=== PATIENT | male | born 1965 | race Hispanic/Latino ===

== ENCOUNTER 2018-11-05 06:07 | Emergency (ER) | payer MEDICARE ==
[2018-11-05] MEDS ORDERED: TYLENOL PO ONE (07:26)
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
--- NOTE | 2018-11-05 07:57 | XRay Report ---
PROCEDURE: XR SPINE CERVICAL 4-5V TECHNIQUE: Cervical spine complete, including AP, lateral, open-mouth odontoid, oblique and flexion and extension studies. HISTORY: neck pain COMPARISONS: 06/12/2018 . FINDINGS: There is hardware transfixing C5, C6 and C7. The hardware is intact. There is mild degenerative disc space narrowing at C4-C5 and C5-C6. There are no fractures or malalignments. There is right-sided foraminal narrowing at C3-C4 and C4-C5 due to osteophytic ridging. There is a le ft foraminal narrowing at C3-C4 4 due to osteophytic ridging. Soft tissues are unremarkable. IMPRESSION: There are postsurgical and degenerative changes as described. There is no acute abnormal ity. . This document is electronically signed by Jaron Villatoro MD., November 05 2018 07:54:32 AM ET
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
[2018-11-05 09:52] VITALS: BP 133/83
== END 2018-11-05 09:55 | disposition home or self-care (01) ==
LOC: ED 06:07
DX: S10.91XA Abrasion of unspecified part of neck, initial encounter (principal); M54.2 Cervicalgia; F17.200 Nicotine dependence, unspecified, uncomplicated; Y04.8XXA Assault by other bodily force, initial encounter; Y93.89 Activity, other specified; Y92.89 Other specified places as the place of occurrence of the external cause; Y99.8 Other external cause status
CPT/HCPCS: 70450; 72050; 99284

== ENCOUNTER 2018-12-03 05:17 | Emergency (ER) | payer MEDICARE ==
[2018-12-03 05:25] VITALS: BP 143/104
[2018-12-03] MEDS ORDERED: IBUPROFEN PO ONE ×3 (05:32→05:38)
[2018-12-03] MEDS ORDERED: TYLENOL PO ONE (05:32)
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
== END 2018-12-03 07:06 | disposition home or self-care (01) ==
LOC: ED 05:17
DX: S92.414A Nondisplaced fracture of proximal phalanx of right great toe, initial encounter for closed fracture (principal); S90.31XA Contusion of right foot, initial encounter; S90.121A Contusion of right lesser toe(s) without damage to nail, initial encounter; M19.90 Unspecified osteoarthritis, unspecified site; G43.909 Migraine, unspecified, not intractable, without status migrainosus; F17.200 Nicotine dependence, unspecified, uncomplicated; Z88.0 Allergy status to penicillin; W20.8XXA Other cause of strike by thrown, projected or falling object, initial encounter; Y93.89 Activity, other specified; Y92.89 Other specified places as the place of occurrence of the external cause; Y99.8 Other external cause status

== ENCOUNTER 2019-05-16 22:08 | Emergency (ER) | payer MEDICARE ==
--- NOTE | 2019-05-16 22:33 | Event Note ---
ED Screening Note Date of service: 05/16/19 Time: 22:29 ED Screening Note: This is a 54 y.o. M. that presents to the ER with depression and insomnia. H bipolar and schizoaffective disorder Patient states his son passed 8 months ago and he can't close his eyes without seeing him. Admits SI thoughts This initial assessment/diagnostic orders/clinical plan/treatment(s) is/are subject to change based on patients health status, clinical progression and re- assessment by fellow clinical providers in the ED. Further treatment and workup at subsequent clinical providers discretion. Patient/guardian urged not to elope from the ED as their condition may be serious if not clinically assessed and managed. Initial orders include: Labs
--- NOTE | 2019-05-16 23:23 | Emergency Department Report ---
ED Psych HPI - General Chief Complaint: Psych Stated Complaint: MH/RT KNEE PAIN Time Seen by Provider: 05/16/19 22:29 Source: patient Mode of arrival: Ambulatory - History of Present Illness Initial Comments: Patient is a 54-year-old male who states that for the past several months he feels that his life is spiraling out of control. More recently the patient stated he came to our hospital because he wanted to be close to where his son a year ago. Patient states that his son was stillborn and he can't get the image of the child out of his head. The patient states that he's had some increased risk behaviors recently been doing drugs and using alcohol. Patient states he was hoping to go to sleep and never wake up. Patient states because this was unsuccessful and he couldn't get the image of his head just want to come to hospital be in the same facility on anniversary that his child. Patient has had thoughts of hopelessness and depression. Patient's only other complaint is some chronic right knee pain which he says is exacerbated by walking approximately 20 miles to get to a hospital. Patient states that he has no car and is also lost his house in the last several months. - Related Data Previous Rx's Medication Instructions Recorded Last Taken Type Cyclobenzaprine [Flexeril] 10 mg PO BID PRN #20 tablet 06/13/18 Unknown Rx Menthol/Camphor [[place] 1 applicatio TP TID PRN #1 tube 06/13/18 Unknown Rx Ointment] Naproxen [Naprosyn] 500 mg PO BID PRN #30 tablet 06/13/18 Unknown Rx Azithromycin [Zithromax Z-PATTI] 250 mg PO DAILY #6 tablet 07/15/18 Unknown Rx Ibuprofen [Motrin] 600 mg PO Q8H PRN #20 tablet 07/15/18 Unknown Rx Acetaminophen/Codeine [Tylenol 1 tab PO Q6H PRN #15 tab 12/03/18 Unknown Rx /Codeine # 3 tab] Cyclobenzaprine [Flexeril] 10 mg PO TID PRN #21 tablet 12/03/18 Unknown Rx Ibuprofen [Motrin] 800 mg PO Q8HR PRN #20 tablet 12/03/18 Unknown Rx Allergies Allergy/AdvReac Type Severity Reaction Status Date / Time Penicillins Allergy Unknown Verified 11/23/14 09:01 ED Review of Systems ROS: Stated complaint: MH/RT KNEE PAIN Other details as noted in HPI Comment: All other systems reviewed and negative ED Past Medical Hx - Past Medical History Hx Arthritis: Yes Hx Headaches / Migraines: Yes Hx Psychiatric Treatment: Yes (BIPOLAR,SCHIZO-EFFECTIVE DISORDER) Additional medical history: "neuro stimulator in lower back" &* "stenosis in neck" - Surgical History Additional Surgical History: 98"neck surgery" "wrist surgery" - Social History Smoking Status: Current Every Day Smoker Substance Use Type: Alcohol - Medications Home Medications: Home Medications Medication Instructions Recorded Confirmed Last Taken Type Cyclobenzaprine [Flexeril] 10 mg PO BID PRN #20 tablet 06/13/18 05/16/19 Unknown Rx Menthol/Camphor [[place] 1 applicatio TP TID PRN #1 tube 06/13/18 05/16/19 Unknown Rx Ointment] Naproxen [Naprosyn] 500 mg PO BID PRN #30 tablet 06/13/18 05/16/19 Unknown Rx Azithromycin [Zithromax Z-PATTI] 250 mg PO DAILY #6 tablet 07/15/18 05/16/19 Unknown Rx Ibuprofen [Motrin] 600 mg PO Q8H PRN #20 tablet 07/15/18 05/16/19 Unknown Rx Acetaminophen/Codeine [Tylenol 1 tab PO Q6H PRN #15 tab 12/03/18 05/16/19 Unknown Rx /Codeine # 3 tab] Cyclobenzaprine [Flexeril] 10 mg PO TID PRN #21 tablet 12/03/18 05/16/19 Unknown Rx Ibuprofen [Motrin] 800 mg PO Q8HR PRN #20 tablet 12/03/18 05/16/19 Unknown Rx ED Physical Exam - General Limitations: No Limitations General appearance: alert, in no apparent distress - Head Head exam: Present: atraumatic, normocephalic - Eye Eye exam: Present: normal appearance, PERRL, EOMI - ENT ENT exam: Present: mucous membranes moist - Neck Neck exam: Present: normal inspection - Respiratory Respiratory exam: Present: normal lung sounds bilaterally. Absent: respiratory distress, wheezes, rales, rhonchi, stridor - Cardiovascular Cardiovascular Exam: Present: regular rate, normal rhythm, normal heart sounds. Absent: systolic murmur, diastolic murmur, rubs, gallop - GI/Abdominal GI/Abdominal exam: Present: soft, normal bowel sounds. Absent: distended, tenderness, guarding, rebound - Rectal Rectal exam: Present: deferred - Extremities Exam Extremities exam: Present: normal inspection - Expanded Lower Extremity Exam Right Knee exam: Present: full ROM, tenderness. Absent: swelling - Back Exam Back exam: Present: normal inspection - Neurological Exam Neurological exam: Present: alert, oriented X3 - Psychiatric Psychiatric exam: Present: normal affect, normal mood - Skin Skin exam: Present: warm, dry, intact, normal color. Absent: rash ED Course Vital Signs 05/16/19 05/16/19 05/17/19 22:16 22:29 02:13 Temperature 98.7 F 98.7 F 98.4 F Pulse Rate 86 88 74 Respiratory 18 18 18 Rate Blood Pressure 132/87 132/87 Blood Pressure 124/99 [Left] O2 Sat by Pulse 98 98 94 Oximetry ED Medical Decision Making - Lab Data Result diagrams: 05/16/19 22:58 05/16/19 22:58 Lab Results 05/16/19 05/16/19 05/16/19 Range/Units 22:58 22:58 22:58 WBC (4.5-11.0) K/mm3 RBC (3.65-5.03) M/mm3 Hgb (11.8-15.2) gm/dl Hct (35.5-45.6) % MCV (84-94) fl MCH (28-32) pg MCHC (32-34) % RDW (13.2-15.2) % Plt Count (140-440) K/mm3 Lymph % (Auto) (13.4-35.0) % [place] % (Auto) (0.0-7.3) % Eos % (Auto) (0.0-4.3) % Baso % (Auto) (0.0-1.8) % Lymph # (1.2-5.4) K/mm3 [place] # (0.0-0.8) K/mm3 Eos # (0.0-0.4) K/mm3 Baso # (0.0-0.1) K/mm3 Seg Neutrophils % (40.0-70.0) % Seg Neutrophils # (1.8-7.7) K/mm3 Sodium 143 (137-145) mmol/L Potassium 3.7 (3.6-5.0) mmol/L Chloride 104.8 (98-107) mmol/L Carbon Dioxide 22 (22-30) mmol/L Anion Gap 20 mmol/L BUN 21 H (9-20) mg/dL Creatinine 0.8 (0.8-1.5) mg/dL Estimated GFR > 60 ml/min BUN/Creatinine Ratio 26 % Glucose 98 (75-100) mg/dL Calcium 8.4 (8.4-10.2) mg/dL Urine Color (Yellow) Urine Turbidity (Clear) Urine pH (5.0-7.0) Ur Specific [place] (1.003-1.030) Urine Protein (Negative) mg/dL Urine Glucose (UA) (Negative) mg/dL Urine Ketones (Negative) mg/dL Urine Blood (Negative) Urine Nitrite (Negative) Urine Bilirubin (Negative) Urine Urobilinogen (<2.0) mg/dL Ur Leukocyte Esterase (Negative) Urine WBC (Auto) (0.0-6.0) /HPF Urine RBC (Auto) (0.0-6.0) /HPF U Epithel Cells (Auto) (0-13.0) /HPF Calcium Oxalate Crystal Urine Mucus /HPF Salicylates < 0.3 L (2.8-20.0) mg/dL Urine Opiates Screen Urine Methadone Screen Acetaminophen < 5.0 L (10.0-30.0) ug/mL Ur Barbiturates Screen Ur Phencyclidine Scrn Ur Amphetamines Screen U Benzodiazepines Scrn Urine Cocaine Screen U Marijuana (THC) Screen Drugs of Abuse Note Plasma/Serum Alcohol (0-0.07) % 05/16/19 05/16/19 05/16/19 Range/Units 22:58 22:58 23:20 WBC 9.3 (4.5-11.0) K/mm3 RBC 4.45 (3.65-5.03) M/mm3 Hgb 14.3 (11.8-15.2) gm/dl Hct 41.5 (35.5-45.6) % MCV 93 (84-94) fl MCH 32 (28-32) pg MCHC 34 (32-34) % RDW 12.9 L (13.2-15.2) % Plt Count 263 (140-440) K/mm3 Lymph % (Auto) 28.0 (13.4-35.0) % [place] % (Auto) 8.0 H (0.0-7.3) % Eos % (Auto) 1.8 (0.0-4.3) % Baso % (Auto) 0.8 (0.0-1.8) % Lymph # 2.6 (1.2-5.4) K/mm3 Thomas # 0.7 (0.0-0.8) K/mm3 Eos # 0.2 (0.0-0.4) K/mm3 Baso # 0.1 (0.0-0.1) K/mm3 Seg Neutrophils % 61.4 (40.0-70.0) % Seg Neutrophils # 5.7 (1.8-7.7) K/mm3 Sodium (137-145) mmol/L Potassium (3.6-5.0) mmol/L Chloride (98-107) mmol/L Carbon Dioxide (22-30) mmol/L Anion Gap mmol/L BUN (9-20) mg/dL Creatinine (0.8-1.5) mg/dL Estimated GFR ml/min BUN/Creatinine Ratio % Glucose (75-100) mg/dL Calcium (8.4-10.2) mg/dL Urine Color Yellow (Yellow) Urine Turbidity Slightly-cloudy (Clear) Urine pH 5.0 (5.0-7.0) Ur Specific [place] 1.031 H (1.003-1.030) Urine Protein <15 mg/dl (Negative) mg/dL Urine Glucose (UA) Neg (Negative) mg/dL Urine Ketones Neg (Negative) mg/dL Urine Blood Sm (Negative) Urine Nitrite Neg (Negative) Urine Bilirubin Neg (Negative) Urine Urobilinogen 4.0 (<2.0) mg/dL Ur Leukocyte Esterase Neg (Negative) Urine WBC (Auto) < 1.0 (0.0-6.0) /HPF Urine RBC (Auto) 14.0 (0.0-6.0) /HPF U Epithel Cells (Auto) < 1.0 (0-13.0) /HPF Calcium Oxalate Crystal 2+ Urine Mucus 3+ /HPF Salicylates (2.8-20.0) mg/dL Urine Opiates Screen Urine Methadone Screen Acetaminophen (10.0-30.0) ug/mL Ur Barbiturates Screen Ur Phencyclidine Scrn Ur Amphetamines Screen U Benzodiazepines Scrn Urine Cocaine Screen U Marijuana (THC) Screen Drugs of Abuse Note Plasma/Serum Alcohol 0.02 (0-0.07) % 05/16/19 Range/Units 23:20 WBC (4.5-11.0) K/mm3 RBC (3.65-5.03) M/mm3 Hgb (11.8-15.2) gm/dl Hct (35.5-45.6) % MCV (84-94) fl MCH (28-32) pg MCHC (32-34) % RDW (13.2-15.2) % Plt Count (140-440) K/mm3 Lymph % (Auto) (13.4-35.0) % [place] % (Auto) (0.0-7.3) % Eos % (Auto) (0.0-4.3) % Baso % (Auto) (0.0-1.8) % Lymph # (1.2-5.4) K/mm3 [place] # (0.0-0.8) K/mm3 Eos # (0.0-0.4) K/mm3 Baso # (0.0-0.1) K/mm3 Seg Neutrophils % (40.0-70.0) % Seg Neutrophils # (1.8-7.7) K/mm3 Sodium (137-145) mmol/L Potassium (3.6-5.0) mmol/L Chloride (98-107) mmol/L Carbon Dioxide (22-30) mmol/L Anion Gap mmol/L BUN (9-20) mg/dL Creatinine (0.8-1.5) mg/dL Estimated GFR ml/min BUN/Creatinine Ratio % Glucose (75-100) mg/dL Calcium (8.4-10.2) mg/dL Urine Color (Yellow) Urine Turbidity (Clear) Urine pH (5.0-7.0) Ur Specific [place] (1.003-1.030) Urine Protein (Negative) mg/dL Urine Glucose (UA) (Negative) mg/dL Urine Ketones (Negative) mg/dL Urine Blood (Negative) Urine Nitrite (Negative) Urine Bilirubin (Negative) Urine Urobilinogen (<2.0) mg/dL Ur Leukocyte Esterase (Negative) Urine WBC (Auto) (0.0-6.0) /HPF Urine RBC (Auto) (0.0-6.0) /HPF U Epithel Cells (Auto) (0-13.0) /HPF Calcium Oxalate Crystal Urine Mucus /HPF Salicylates (2.8-20.0) mg/dL Urine Opiates Screen Presumptive negative Urine Methadone Screen Presumptive negative Acetaminophen (10.0-30.0) ug/mL Ur Barbiturates Screen Presumptive negative Ur Phencyclidine Scrn Presumptive negative Ur Amphetamines Screen Presumptive negative U Benzodiazepines Scrn Presumptive negative Urine Cocaine Screen Presumptive positive U Marijuana (THC) Screen Presumptive negative Drugs of Abuse Note Disclamer Plasma/Serum Alcohol (0-0.07) % - Medical Decision Making Patient has been medically cleared for psychiatric evaluation Critical care attestation.: If time is entered above; I have spent that time in minutes in the direct care of this critically ill patient, excluding procedure time. ED Disposition Clinical Impression: Depression, Abnormal grief reaction, Suicidal thoughts, Cocaine abuse Is pt being admited?: No Does the pt Need Aspirin: No Condition: Stable
[2019-05-16 23:50] LABS: Basophils # (Auto) 0.1 K/mm3 (0.0-0.1); Basophils % (Auto) 0.8 % (0.0-1.8); Eosinophils # (Auto) 0.2 K/mm3 (0.0-0.4); Eosinophils % (Auto) 1.8 % (0.0-4.3); Hematocrit 41.5 % (35.5-45.6); Hemoglobin 14.3 gm/dl (11.8-15.2); Lymphocytes # (Auto) 2.6 K/mm3 (1.2-5.4); Mean Corpuscular HGB Conc 34 % (32-34); Mean Corpuscular Volume 93 fl (84-94); Monocytes # (Auto) 0.7 K/mm3 (0.0-0.8); Platelet Count 263 K/mm3 (140-440); Red Blood Count 4.45 M/mm3 (3.65-5.03); Red Cell Distribution Width 12.9 % (13.2-15.2)
[2019-05-17 00:11] LABS: BUN/Creatinine Ratio 26; Blood Urea Nitrogen 21 mg/dL (9-20); Calcium 8.4 mg/dL (8.4-10.2); Hemolysis Index 4
[2019-05-17 00:13] LABS: Amphetamine Screen,Urine PRESUMPTIVE NEGATIVE; Benzodiazepines Screen,Urine PRESUMPTIVE NEGATIVE; Cannabinoid Screen,Urine PRESUMPTIVE NEGATIVE; Methadone Screen,Urine PRESUMPTIVE NEGATIVE; Opiate Screen,Urine PRESUMPTIVE NEGATIVE
[2019-05-17 00:31] LABS: Cocaine Screen,Urine PRESUMPTIVE POSITIVE
[2019-05-17 00:58] LABS: Bilirubin,Urine NEG (Negative); Blood,Urine SM (Negative); Color,Urine Yellow (Yellow)
[2019-05-17 00:59] LABS: Calcium Oxalate Crystals,Urine 2+; Mucus,Urine 3+ /HPF; Protein,Urine <15 mg/dL mg/dL (Negative); WBC,Urine < 1.0 /HPF (0.0-6.0)
--- NOTE | 2019-05-17 11:39 | Consultation ---
History of Present Illness - Reason for Consult Consult date: 05/17/19 Reason for consult: Mental Health Evaluation Requesting physician: ZEUS DAVIS - Chief Complaint Chief complaint: "I'm where I need to be" - History of Present Psychiatric Illness 54-year-old white male who presented to the ER fro depression. Today the patient was emotional during the assessment. He stated that he need to be in [facility] because his infant son at this facility. He stated that he have given away a lot of personal belongings because he want to be with his son. He stated he was suicidal yesterday prior to coming to the ER. He would not confirm or deny SI's when asked. He stated that he binged on cocaine recently to kill himself. He does rate his depression 6/10, with 10 being the worse. He stated that he hav e attempted suicide by overdosing on pills in the past. He denies HI's and AVH's. He acknowledged erratic sleep, but denies a poor appetite. He denies alcohol consumption (etoh). Medications and Allergies Allergies Allergy/AdvReac Type Severity Reaction Status Date / Time Penicillins Allergy Unknown Verified 11/23/14 09:01 Home Medications Medication Instructions Recorded Confirmed Last Taken Type Cyclobenzaprine [Flexeril] 10 mg PO BID PRN #20 tablet 06/13/18 05/16/19 Unknown Rx Menthol/Camphor [[place] 1 applicatio TP TID PRN #1 tube 06/13/18 05/16/19 Unknown Rx Ointment] Naproxen [Naprosyn] 500 mg PO BID PRN #30 tablet 06/13/18 05/16/19 Unknown Rx Azithromycin [Zithromax Z-PATTI] 250 mg PO DAILY #6 tablet 07/15/18 05/16/19 Unknown Rx Ibuprofen [Motrin] 600 mg PO Q8H PRN #20 tablet 07/15/18 05/16/19 Unknown Rx Acetaminophen/Codeine [Tylenol 1 tab PO Q6H PRN #15 tab 12/03/18 05/16/19 Unknown Rx /Codeine # 3 tab] Cyclobenzaprine [Flexeril] 10 mg PO TID PRN #21 tablet 12/03/18 05/16/19 Unknown Rx Ibuprofen [Motrin] 800 mg PO Q8HR PRN #20 tablet 12/03/18 05/16/19 Unknown Rx Past psychiatric history - Past Medical History Past Medical History: No medical history Past Surgical History: No surgical history - past Psychiatric treatment and history psychiatric treatment history: Inpatient psy services in the past. Denies a fam psy hx. - Social History Social history: lives with family Mental Status Exam - Vital signs Last Vital Signs Temp 98.3 F 05/17/19 10:09 Pulse 88 05/17/19 10:09 Resp 18 05/17/19 02:13 BP 132/81 05/17/19 10:09 Pulse Ox 98 05/17/19 10:09 - Exam Narrative exam: MSE: Appearance: in hospital attire Behavior: poor eye contact Speech: regular rate and low tone Mood: emotional Affect: congruent to mood Thought Process: circumstantial Thought Content: denies HI's and AVH's Motor Activity: lying in bed Cognition: A/O x 3 Insight: variable Judgment: poor Results Result Diagrams: 05/16/19 22:58 05/16/19 22:58 Abnormal lab results 05/16/19 05/16/19 05/16/19 Range/Units 22:58 22:58 22:58 RDW (13.2-15.2) % [place] % (Auto) (0.0-7.3) % BUN 21 H (9-20) mg/dL Ur Specific [place] (1.003-1.030) Salicylates < 0.3 L (2.8-20.0) mg/dL Acetaminophen < 5.0 L (10.0-30.0) ug/mL 05/16/19 05/16/19 Range/Units 22:58 23:20 RDW 12.9 L (13.2-15.2) % [place] % (Auto) 8.0 H (0.0-7.3) % BUN (9-20) mg/dL Ur Specific [place] 1.031 H (1.003-1.030) Salicylates (2.8-20.0) mg/dL Acetaminophen (10.0-30.0) ug/mL All other labs normal. Assessment and Plan Assessment and plan: Impression: MDD, Severe Type. Substance Use DO (cocaine). Today the patient was emotional during the assessment. DDx: Bipolar DO, Substance Induced Mood DO Recommendations/Plan: Continue 1013 and start Zoloft 50 mg PO daily for depression and Melatonin 5 mg PO HS PRN for sleep. Discussed possible suicidality/medication induced ranulfo with the patient reference Zoloft, he verbalized understanding. Line of sight for safety. Dipso: The patient was referred to inpatient psy services. Will staff with Dr Paola Rodriguez.
[2019-05-17] MEDS ORDERED: ZOLOFT PO SCH (12:00)
[2019-05-17] MEDS ORDERED: MELATONIN PO PRN (12:24)
[2019-05-17] MEDS ORDERED: GEODON ONE (13:11)
[2019-05-18 02:14] VITALS: BP 130/83
== END 2019-05-18 04:58 ==
LOC: ED 22:08 → EEVIPCON 22:08 → ED 05-18 04:58
DX: F32.9 Major depressive disorder, single episode, unspecified (principal); F14.10 Cocaine abuse, uncomplicated; M19.90 Unspecified osteoarthritis, unspecified site; G43.909 Migraine, unspecified, not intractable, without status migrainosus; F31.9 Bipolar disorder, unspecified; F25.9 Schizoaffective disorder, unspecified; F17.200 Nicotine dependence, unspecified, uncomplicated; Z79.899 Other long term (current) drug therapy; Z88.0 Allergy status to penicillin; Z98.890 Other specified postprocedural states
CPT/HCPCS: 36415; 80048; 80307; 80320; 81001; 85025; G0480

== ENCOUNTER 2019-06-12 12:46 | Emergency (ER) | payer MEDICARE ==
[2019-06-12 12:56] VITALS: BP 140/101
--- NOTE | 2019-06-12 12:56 | Event Note ---
ED Screening Note Date of service: 06/12/19 Time: 12:55 ED Screening Note: Pt complains of migraine x 4-5 days states hx of migraines that usually resolve with BC powders, but hasn't been working states pain is 4/10 in severity also recently ran out of his zoloft-needing a refill This initial assessment/diagnostic orders/clinical plan/treatment(s) is/are subject to change based on patients health status, clinical progression and re- assessment by fellow clinical providers in the ED. Further treatment and workup at subsequent clinical providers discretion. Patient/guardian urged not to elope from the ED as their condition may be serious if not clinically assessed and managed. Initial orders include:
[2019-06-12] MEDS ORDERED: KETOROLAC 30 MG/1 ML INJ IV ONE (13:01)
[2019-06-12] MEDS ORDERED: METOCLOPRAMIDE 10 MG/2 ML INJ IV ONE (13:02)
[2019-06-12] MEDS ORDERED: dexAMETHasone 4 MG/ML VIAL IV ONE (13:02)
[2019-06-12] MEDS ORDERED: diphenhydrAMINE 50 MG/ML VIAL IV ONE (13:02)
[2019-06-12] MEDS ORDERED: SODIUM CHLORIDE 0.9% 1000 ML 1,000 ML IV ONE (13:02)
--- NOTE | 2019-06-12 14:41 | Emergency Department Report ---
ED Headache HPI - General Chief Complaint: Headache Stated Complaint: MIGRAINE Time Seen by Provider: 06/12/19 12:55 - History of Present Illness Initial Comments: This is a 54-year-old male nontoxic, well nourished in appearance, no acute signs of distress presents to the ED with c/o of acute on chronic headache. Patient describes headache as diffuse with level of 8 out of 10. Patient denies thunderclap headache. Patient denies any radiation of pain. Patient denies any head trauma. Patient denies any visual changes. Patient denies worse headache. Patient stated that darkness makes headache better and bright lights make the headache worse. Patient denies any numbness, tingling, fever, chills, nausea, vomiting, chest pain, shortness of breath, stiff neck. Patient denies facial drooping or one sided weakness. Patient denies any radiation of pain. Patient stated allergies to PCN. Past medical history includes migraine headaches. Timing/Duration: episodic Quality: mild, achy Head Injury Location: other (diffuse) Recent Head Trauma: occasional headaches Associated Symptoms: denies symptoms. denies: confusion, fatigue, facial pain, fever/chills, flushing, loss of consciousness, nausea/vomiting, nasal congestion, nasal drainage, numbness in legs/feet, rash, seizures, sinus infec tion, stiff neck, vision changes, weakness Allergies/Adverse Reactions: Allergies Penicillins Allergy (Verified 06/12/19 12:51) Unknown Home Medications: Ambulatory Orders Cyclobenzaprine [Flexeril] 10 mg PO BID PRN #20 tablet 06/13/18 Menthol/Camphor [[place] Ointment] 1 applicatio TP TID PRN #1 tube 06/13/18 Naproxen [Naprosyn] 500 mg PO BID PRN #30 tablet 06/13/18 Azithromycin [Zithromax Z-PATTI] 250 mg PO DAILY #6 tablet 07/15/18 Ibuprofen [Motrin] 600 mg PO Q8H PRN #20 tablet 07/15/18 Acetaminophen/Codeine [Tylenol /Codeine # 3 tab] 1 tab PO Q6H PRN #15 tab 12/03/18 Cyclobenzaprine [Flexeril] 10 mg PO TID PRN #21 tablet 12/03/18 Ibuprofen [Motrin] 800 mg PO Q8HR PRN #20 tablet 12/03/18 Butalb/Acetaminophen/Caffeine [Fioricet 50-300-40 mg CAP] 1 cap PO Q8HR PRN #12 cap 06/12/19 ED Review of Systems ROS: Stated complaint: MIGRAINE Other details as noted in HPI Constitutional: denies: chills, fever Eyes: denies: eye pain, eye discharge, vision change ENT: denies: ear pain, throat pain Respiratory: denies: cough, shortness of breath, wheezing Cardiovascular: denies: chest pain, palpitations Endocrine: no symptoms reported Gastrointestinal: denies: abdominal pain, nausea, diarrhea Genitourinary: denies: urgency, dysuria Musculoskeletal: denies: back pain, joint swelling, arthralgia Skin: denies: rash, lesions Neurological: headache. denies: weakness, paresthesias Psychiatric: denies: anxiety, depression Hematological/Lymphatic: denies: easy bleeding, easy bruising ED Past Medical Hx - Past Medical History Hx Arthritis: Yes Hx Headaches / Migraines: Yes Hx Psychiatric Treatment: Yes (BIPOLAR,SCHIZO-EFFECTIVE DISORDER) Additional medical history: "neuro stimulator in lower back" &* "stenosis in neck", umbilical hernia - Surgical History Additional Surgical History: 98"neck surgery" "wrist surgery" - Social History Smoking Status: Current Every Day Smoker Substance Use Type: None - Medications Home Medications: Home Medications Medication Instructions Recorded Confirmed Last Taken Type Cyclobenzaprine [Flexeril] 10 mg PO BID PRN #20 tablet 06/13/18 05/16/19 Unknown Rx Menthol/Camphor [[place] 1 applicatio TP TID PRN #1 tube 06/13/18 05/16/19 Unknown Rx Ointment] Naproxen [Naprosyn] 500 mg PO BID PRN #30 tablet 06/13/18 05/16/19 Unknown Rx Azithromycin [Zithromax Z-PATTI] 250 mg PO DAILY #6 tablet 07/15/18 05/16/19 Unknown Rx Ibuprofen [Motrin] 600 mg PO Q8H PRN #20 tablet 07/15/18 05/16/19 Unknown Rx Acetaminophen/Codeine [Tylenol 1 tab PO Q6H PRN #15 tab 12/03/18 05/16/19 Unknown Rx /Codeine # 3 tab] Cyclobenzaprine [Flexeril] 10 mg PO TID PRN #21 tablet 12/03/18 05/16/19 Unknown Rx Ibuprofen [Motrin] 800 mg PO Q8HR PRN #20 tablet 12/03/18 05/16/19 Unknown Rx Butalb/Acetaminophen/Caffeine 1 cap PO Q8HR PRN #12 cap 06/12/19 Unknown Rx [Fioricet 50-300-40 mg CAP] ED Physical Exam - General Limitations: No Limitations General appearance: alert, in no apparent distress - Head Head exam: Present: atraumatic, normocephalic - Neck Neck exam: Present: normal inspection, full ROM. Absent: tenderness, meningismus, lymphadenopathy - Extremities Exam Extremities exam: Present: normal inspection, full ROM - Back Exam Back exam: Present: normal inspection, full ROM. Absent: tenderness, CVA tenderness (R), CVA tenderness (L), muscle spasm, paraspinal tenderness, vertebral tenderness, rash noted - Neurological Exam Neurological exam: Present: alert, oriented X3, normal gait - Expanded Neurological Exam Expanded Patient oriented to: Present: person, place, time Cranial nerves: EOM's Intact: Normal, Facial Sensation: Normal Cerebellar function: Finger to Nose: Normal Upper motor neuron: Pronator Drift: Normal, Sensory Extinction: Normal Motor strength exam: RUE: 5, LUE: 5, RLE: 5, LLE: 5 Best Eye Response ([place]): (4) open spontaneously Best Motor Response ([place]): (6) obeys commands Best Verbal Response ([place]): (5) oriented [place] Total: 15 - Psychiatric Psychiatric exam: Present: normal affect, normal mood - Skin Skin exam: Present: warm, dry, intact, normal color. Absent: rash ED Course Vital Signs 06/12/19 12:49 Temperature 98.5 F Pulse Rate 87 Respiratory 17 Rate Blood Pressure 140/101 O2 Sat by Pulse 96 Oximetry - Reevaluation(s) Reevaluation #1: 06/12/19 14:40 Patient is speaking in full sentences with no signs of distress noted. ED Medical Decision Making - Medical Decision Making This is a 54-year-old male that presents with headache. Patient is stable and was examined by me. Patient is neurologically stable. There is no stiff neck or neck pain. Vital signs are stable. CT scan of head obtained and dictated by the radiologist unremarkable. Patient is notified of the CT results with no questions noted by the patient. Patient is afebrile. Patient received Benadryl, Reglan, Toradol, and 1 L of normal saline which the patient stated that headache has subsided and resolved. Patient was instructed not to operate any machinery after discharged due to drowsiness of Benadryl. Patient stated that a family member will drive patient home. Patient is discharged with Fioricet. Patient was referred to Follow-up with a primary care/neurologist doctor in 3-5 days or if symptoms worsen and continue return to emergency room as soon as possible. At time of discharge, the patient does not seem toxic or ill in appearance. No acute signs of distress noted. Patient agrees to discharge treatment plan of care. No further questions noted by the patient. Critical care attestation.: If time is entered above; I have spent that time in minutes in the direct care of this critically ill patient, excluding procedure time. ED Disposition Clinical Impression: Migraine headache Qualifiers: Migraine type: unspecified Status migrainosus presence: without status migrainosus Intractability: not intractable Qualified Code(s): G43.909 - Migraine, unspecified, not intractable, without status migrainosus Disposition: DC-01 TO HOME OR SELFCARE Is pt being admited?: No Does the pt Need Aspirin: No Condition: Stable Instructions: Acute Headache (ED), Butalbital/Aspirin/Caffeine (By mouth) Additional Instructions: Follow-up with a primary care doctor in 3-5 days or if symptoms worsen and continue return to emergency room as soon as possible. Prescriptions: Butalb/Acetaminophen/Caffeine [Fioricet 50-300-40 mg CAP] 1 cap PO Q8HR PRN #12 cap PRN Reason: Headache Referrals: PRIMARY CARE, [Referring] - 3-5 Days MEAGAN CHIN MD [Staff Physician] - 3-5 Days [facility] [Outside] - 3-5 Days [facility] [Outside] - 3-5 Days Forms: Work/School Release Form(ED)
--- NOTE | 2019-06-12 14:51 | Cat Scan Report ---
CT BRAIN: 06/12/2019 INDICATION / CLINICAL INFORMATION: headache. COMPARISON: 11/05/2018 FINDINGS: BRAIN/INTRACRANIAL STRUCTURES: Unenhanced CT images of the brain dated straight no evidence of acute intracranial abnormality. Ventricles and sulci are normal in size and shape. There is no evidence of ischemic injury, hemorrhage, or mass. There are no abnormal extra-axial fluid collections. Incidental note is made of moderate mucosal thickening in the left maxillary sinus. Paranasal sinuses are otherwise clear. EXTRACRANIAL STRUCTURES: Unremarkable. IMPRESSION: Negative unenhanced CT of the brain. Overall, no significant change when compared to 11/05/2018, other than development of left maxillary sinus mucosal thickening.. All CT scans at this location are performed using dose reduction to ALARA by means of automated expos ure control. Signer Name: Jun Pederson MD Signed: 06/12/2019 2:47 PM Workstation Name: [id number]
== END 2019-06-12 16:26 | disposition home or self-care (01) ==
LOC: ED 12:46
DX: G43.909 Migraine, unspecified, not intractable, without status migrainosus (principal); M19.90 Unspecified osteoarthritis, unspecified site; F31.9 Bipolar disorder, unspecified; F17.200 Nicotine dependence, unspecified, uncomplicated; F25.9 Schizoaffective disorder, unspecified; Z88.0 Allergy status to penicillin; Z79.899 Other long term (current) drug therapy; Z79.1 Long term (current) use of non-steroidal anti-inflammatories (NSAID)
CPT/HCPCS: 70450; 96374; 96375; 99283; J1100; J1200; J1885; J2765; J7030

== ENCOUNTER 2019-07-15 11:26 | Emergency (ER) | payer MEDICARE ==
[2019-07-15 11:38] VITALS: BP 143/93
--- NOTE | 2019-07-15 11:42 | Event Note ---
ED Screening Note Date of service: 07/15/19 Time: 11:35 ED Screening Note: This is a 54 y.o. M. that presents to the ER for depression and anxiety medication refills. He also complains of BLE edema. Patient states off medication since being in [facility] for 15 days. He was taken off medication abruptly and feeling more depressed. Denies chest pain, SOB, or palpitations. This initial assessment/diagnostic orders/clinical plan/treatment(s) is/are subject to change based on patients health status, clinical progression and re- assessment by fellow clinical providers in the ED. Further treatment and workup at subsequent clinical providers discretion. Patient/guardian urged not to elope from the ED as their condition may be serious if not clinically assessed and managed. Initial orders include:
[2019-07-15] MEDS ORDERED: LORazepam 1 MG TAB PO ONE (12:40)
--- NOTE | 2019-07-15 12:54 | Emergency Department Report ---
ED Psych HPI - General Chief Complaint: Abdominal Pain Stated Complaint: FEET/LEGS SWELLING/CHECK BP Time Seen by Provider: 07/15/19 11:35 Source: patient Mode of arrival: Ambulatory Limitations: No Limitations - History of Present Illness Initial Comments: Mr. Xiao is a 54-year-old male with history of pernicious disorder, bipolar disorder, schizoaffective disorder, cocaine abuse who presents with acute depression and grief. Since August he has been extremely sad and depressed regarding the loss of his son. The baby was born as a stillborn. In May, he was seen in our emergency facility and transferred to [facility]. He stated he felt better after receiving medications Ativan Zoloft Seroquel. He desires refill of these medications. He has anxiety. He denies suicidal or homicidal ideation. "Mr. Xiao explains, I'm not a psych case. I'm not mental. I just need medication. I do not want to see psych." He also desires referral for evaluation of chronic umbilical hernia which has been present for several years. He denies any new pain in the area. The hernia has not changed in size or nature. He denies fever vomiting or abdominal pain. He also is concerned that his blood pressure is too high. No History of hypertension. He also has concern of lower leg swelling. MD Complaint: feels depressed -: Gradual, week(s) (several weeks several months) Associated Psychiatric Symptoms: depression History of same: Yes Quality: constant Improves With: none, medication Context: not taking psychiatric Treatments Prior to Arrival: none If Self Harm: other (denies a plan to harm himself) - Related Data Previous Rx's Medication Instructions Recorded Last Taken Type Cyclobenzaprine [Flexeril] 10 mg PO BID PRN #20 tablet 06/13/18 Unknown Rx Menthol/Camphor [[place] 1 applicatio TP TID PRN #1 tube 06/13/18 Unknown Rx Ointment] Naproxen [Naprosyn] 500 mg PO BID PRN #30 tablet 06/13/18 Unknown Rx Azithromycin [Zithromax Z-PATTI] 250 mg PO DAILY #6 tablet 07/15/18 Unknown Rx Ibuprofen [Motrin] 600 mg PO Q8H PRN #20 tablet 07/15/18 Unknown Rx Acetaminophen/Codeine [Tylenol 1 tab PO Q6H PRN #15 tab 12/03/18 Unknown Rx /Codeine # 3 tab] Cyclobenzaprine [Flexeril] 10 mg PO TID PRN #21 tablet 12/03/18 Unknown Rx Ibuprofen [Motrin] 800 mg PO Q8HR PRN #20 tablet 12/03/18 Unknown Rx Butalb/Acetaminophen/Caffeine 1 cap PO Q8HR PRN #12 cap 06/12/19 Unknown Rx [Fioricet 50-300-40 mg CAP] Allergies Allergy/AdvReac Type Severity Reaction Status Date / Time Penicillins Allergy Unknown Verified 06/12/19 12:51 ED Review of Systems ROS: Stated complaint: FEET/LEGS SWELLING/CHECK BP Other details as noted in HPI Comment: All other systems reviewed and negative Constitutional: denies: fever, malaise Respiratory: denies: cough Cardiovascular: denies: chest pain Gastrointestinal: denies: abdominal pain, nausea, vomiting Psychiatric: depression. denies: anxiety, auditory hallucinations, visual hallucinations, suicidal thoughts Hematological/Lymphatic: denies: easy bruising ED Past Medical Hx - Past Medical History Previous Medical History?: Yes Hx Arthritis: Yes Hx Headaches / Migraines: Yes Hx Psychiatric Treatment: Yes (BIPOLAR,SCHIZO-EFFECTIVE DISORDER) Additional medical history: "neuro stimulator in lower back" &* "stenosis in neck", umbilical hernia - Surgical History Past Surgical History?: Yes Additional Surgical History: 98"neck surgery" "wrist surgery" - Social History Smoking Status: Current Every Day Smoker Substance Use Type: Alcohol, Cocaine - Medications Home Medications: Home Medications Medication Instructions Recorded Confirmed Last Taken Type Cyclobenzaprine [Flexeril] 10 mg PO BID PRN #20 tablet 06/13/18 05/16/19 Unknown Rx Menthol/Camphor [[place] 1 applicatio TP TID PRN #1 tube 06/13/18 05/16/19 Unknown Rx Ointment] Naproxen [Naprosyn] 500 mg PO BID PRN #30 tablet 06/13/18 05/16/19 Unknown Rx Azithromycin [Zithromax Z-PATTI] 250 mg PO DAILY #6 tablet 07/15/18 05/16/19 Unknown Rx Ibuprofen [Motrin] 600 mg PO Q8H PRN #20 tablet 07/15/18 05/16/19 Unknown Rx Acetaminophen/Codeine [Tylenol 1 tab PO Q6H PRN #15 tab 12/03/18 05/16/19 Unknown Rx /Codeine # 3 tab] Cyclobenzaprine [Flexeril] 10 mg PO TID PRN #21 tablet 12/03/18 05/16/19 Unknown Rx Ibuprofen [Motrin] 800 mg PO Q8HR PRN #20 tablet 12/03/18 05/16/19 Unknown Rx Butalb/Acetaminophen/Caffeine 1 cap PO Q8HR PRN #12 cap 06/12/19 Unknown Rx [Fioricet 50-300-40 mg CAP] ED Physical Exam - General Limitations: No Limitations General appearance: alert, in no apparent distress - Head Head exam: Present: atraumatic, normocephalic - Eye Eye exam: Present: normal appearance - ENT ENT exam: Present: mucous membranes moist - Neck Neck exam: Present: normal inspection, full ROM. Absent: tenderness, meningismus - Respiratory Respiratory exam: Present: normal lung sounds bilaterally. Absent: respiratory distress, wheezes, rales, rhonchi - Cardiovascular Cardiovascular Exam: Present: regular rate, normal rhythm, normal heart sounds. Absent: systolic murmur, diastolic murmur, rubs, gallop - GI/Abdominal GI/Abdominal exam: Present: soft, normal bowel sounds, hernia (4 cm soft nontender umbilical hernia). Absent: distended, tenderness, guarding, rebound - Rectal Rectal exam: Present: deferred - Extremities Exam Extremities exam: Present: normal inspection, full ROM. Absent: pedal edema - Neurological Exam Neurological exam: Present: alert, oriented X3 - Psychiatric Psychiatric exam: Present: normal affect, depressed. Absent: agitated, anxious, flat affect, manic, homicidal ideation, suicidal ideation - Skin Skin exam: Present: warm, dry, intact, normal color. Absent: rash ED Course Vital Signs 07/15/19 11:35 Temperature 98.1 F Pulse Rate 92 H Respiratory 20 Rate Blood Pressure 143/93 O2 Sat by Pulse 96 Oximetry ED Medical Decision Making - Medical Decision Making 1. Depression, history of grief disorder, schizoaffective disorder and bipolar disorder Mr. Xiao repeatedly denies suicidal ideation. 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 I have referred him to the [facility]. He received 1 dose of Ativan here in emergency department. I tried to explain that it would be inappropriate for me to refill these medications. If he requires these medications, he will need to be followed by primary care physician or psychiatrist. 2. Umbilical hernia: On exam all reducible notification of strangulation incarceration or obstruction given referral to general surgeon 3. Bilateral lower extremity edema. No notable edema on exam given reassurance. 4. Elevated blood pressure: Given reassurance provided verbal education. I do not suspect that he has hypertension. Blood pressure reading only mildly elevat ed. I also provided referral to outpatient primary care physician. Critical care attestation.: If time is entered above; I have spent that time in minutes in the direct care of this critically ill patient, excluding procedure time. ED Disposition Clinical Impression: Depression, Umbilical hernia, Prolonged grief disorder Disposition: TO HOME OR SELFCARE Is pt being admited?: No Does the pt Need Aspirin: No Condition: Stable Additional Instructions: Please return to the ER if you have any concerns. Please follow up as we discussed. [facility] BRUCE CASTRO MD [Staff Physician] - 3-5 Days CHAD QUINONES MD [Staff Physician] - 3-5 Days
== END 2019-07-15 13:10 | disposition home or self-care (01) ==
LOC: ED 11:26
DX: F32.9 Major depressive disorder, single episode, unspecified (principal); K42.9 Umbilical hernia without obstruction or gangrene; F43.21 Adjustment disorder with depressed mood; M19.90 Unspecified osteoarthritis, unspecified site; G43.909 Migraine, unspecified, not intractable, without status migrainosus; F17.200 Nicotine dependence, unspecified, uncomplicated; F14.10 Cocaine abuse, uncomplicated; Z98.890 Other specified postprocedural states; Z79.1 Long term (current) use of non-steroidal anti-inflammatories (NSAID); Z79.899 Other long term (current) drug therapy; Z88.2 Allergy status to sulfonamides
CPT/HCPCS: 99282

== ENCOUNTER 2019-07-20 13:45 | Inpatient (IN) | payer MEDICARE ==
--- NOTE | 2019-07-20 13:53 | Emergency Department Report ---
Blank Doc - Documentation Documentation: 54-year-old male that presents with umbilical hernia pain and right leg pain and swelling. Was sent by [facility]. This initial assessment/diagnostic orders/clinical plan/treatment(s) is/are subject to change based on patient's health status, clinical progression and re- assessment by fellow clinical providers in the ED. Further treatment and workup at subsequent clinical providers discretion. Patient/guardians urged not to elope from the ED as their condition may be serious if not clinically assessed and managed. Initial orders include: 1- Patient sent to MAIN ED for further evaluation and treatment 2- labs 3- US Doppler
--- NOTE | 2019-07-20 14:55 | Vascular Lab Report ---
DUPLEX DOPPLER LOWER EXTREMITY VEINS, RIGHT INDICATION: right leg pain. TECHNIQUE: Duplex doppler imaging was performed through the veins of the right lower extremity using venous comp ression and other maneuvers. COMPARISON: No relevant prior imaging study available. FINDINGS: Right Common femoral vein: Negative. Right Superficial femoral vein: Negative. Right Popliteal vein: Negative. Right Calf veins: Negative. Additional findings: None.. IMPRESSION: 1. No sonographic evidence for DVT in the right lower extremity. Signer Name: Derek Schulte MD Signed: 07/20/2019 2:51 PM Workstation Name: [id number]
--- NOTE | 2019-07-20 15:02 | Emergency Department Report ---
ED Abdominal Pain HPI - General Chief Complaint: Abdominal Pain Stated Complaint: SENT FROM [facility] Time Seen by Provider: 07/20/19 13:50 Source: patient Mode of arrival: Ambulatory Limitations: No Limitations - History of Present Illness Initial Comments: Patient is a 54-year-old mellitus emergency room with complaints of abdominal pain and right leg pain and swelling. Patient states that he's had knee and calf pain for approximately 2 days. Patient states the pain is a 7 out of 10. Patient states his lower extremity swelling. Patient states his leg pain is worse with movement and walking and better with rest. Patient denies history of DVT. Patient states his abdominal pain started about 4 weeks ago but over the last 2 weeks he has increased in pain. Patient states his abdominal pain as a 7 out of 10. Patient states his pain pain is better with rest and worse with movement and palpation. Patient states he has been constipated. Patient states this morning he had a very large bowel movement. MD Complaint: abdominal pain -: Gradual Location: epigastric Radiation: none Migration to: no migration Severity: severe Severity scale (0 -10): 7 Quality: stabbing Consistency: constant Improves With: rest Worsens With: movement Associated Symptoms: constipation. denies: nausea, vomiting, diarrhea, fever, chills, dysuria, hematemesis, hematochezia, melena, hematuria, anorexia, syncope Treatments Prior to Arrival: other - Related Data Previous Rx's Medication Instructions Recorded Last Taken Type Cyclobenzaprine [Flexeril] 10 mg PO BID PRN #20 tablet 06/13/18 Unknown Rx Butalb/Acetaminophen/Caffeine 1 cap PO Q8HR PRN #12 cap 06/12/19 Unknown Rx [Fioricet 50-300-40 mg CAP] Allergies Allergy/AdvReac Type Severity Reaction Status Date / Time Penicillins Allergy Unknown Verified 06/12/19 12:51 ED Review of Systems ROS: Stated complaint: SENT FROM [facility] Other details as noted in HPI Constitutional: denies: chills, fever Eyes: denies: eye pain, eye discharge, vision change ENT: denies: ear pain, throat pain Respiratory: denies: cough, shortness of breath, wheezing Cardiovascular: denies: chest pain, palpitations Endocrine: no symptoms reported Gastrointestinal: abdominal pain, constipation. denies: nausea, diarrhea Genitourinary: denies: urgency, dysuria Musculoskeletal: denies: back pain, joint swelling, arthralgia Skin: denies: rash, lesions Neurological: denies: headache, weakness, paresthesias Psychiatric: denies: anxiety, depression Hematological/Lymphatic: denies: easy bleeding, easy bruising ED Past Medical Hx - Past Medical History Previous Medical History?: Yes Hx Arthritis: Yes Hx Headaches / Migraines: Yes Hx Psychiatric Treatment: Yes (BIPOLAR,SCHIZO-EFFECTIVE DISORDER) Additional medical history: "neuro stimulator in lower back" &* "stenosis in neck", umbilical hernia - Surgical History Past Surgical History?: Yes Additional Surgical History: 98"neck surgery" "wrist surgery" - Family History Family history: no significant - Social History Smoking Status: Current Every Day Smoker Substance Use Type: None - Medications Home Medications: Home Medications Medication Instructions Recorded Confirmed Last Taken Type Cyclobenzaprine [Flexeril] 10 mg PO BID PRN #20 tablet 06/13/18 07/20/19 Unknown Rx Butalb/Acetaminophen/Caffeine 1 cap PO Q8HR PRN #12 cap 06/12/19 07/20/19 Unknown Rx [Fioricet 50-300-40 mg CAP] ED Physical Exam - General Limitations: No Limitations General appearance: alert, in no apparent distress - Head Head exam: Present: atraumatic, normocephalic - Eye Eye exam: Present: normal appearance - ENT ENT exam: Present: mucous membranes moist - Neck Neck exam: Present: normal inspection - Respiratory Respiratory exam: Present: normal lung sounds bilaterally. Absent: respiratory distress - Cardiovascular Cardiovascular Exam: Present: regular rate, normal rhythm. Absent: systolic murmur, diastolic murmur, rubs, gallop - GI/Abdominal GI/Abdominal exam: Present: soft, tenderness (to the umbilical hernia Hernia not reducible.), normal bowel sounds, hernia - Rectal Rectal exam: Present: deferred - Extremities Exam Extremities exam: Present: normal inspection, tenderness, joint swelling (right knee ), calf tenderness (rt calf) - Back Exam Back exam: Present: normal inspection - Neurological Exam Neurological exam: Present: alert, oriented X3 - Psychiatric Psychiatric exam: Present: normal affect, normal mood - Skin Skin exam: Present: warm, dry, intact, normal color. Absent: rash ED Course Vital Signs 07/20/19 07/20/19 07/20/19 13:51 15:53 17:40 Temperature 98 F Pulse Rate 83 61 60 Respiratory 18 16 16 Rate Blood Pressure 142/91 Blood Pressure 133/92 134/79 [Left] O2 Sat by Pulse 100 97 98 Oximetry 07/20/19 19:15 Temperature 98.7 F Pulse Rate 81 Respiratory 15 Rate Blood Pressure Blood Pressure 129/79 [Left] O2 Sat by Pulse 97 Oximetry - Reevaluation(s) Reevaluation #1: I discussed all results with patient. Discussed plan of care with patient. Patient agrees to plan of care. Patient will be admitted to the hospitalist service. 07/20/19 19:19 - Consultations Consultation #1: I discussed case with Gen. surgery, Dr. Davis. 07/20/19 18:13 Dr. Davis saw the patient and the area is not reducible. Dr. Davis wants the patient to be admitted to the hospitalist service and she will place the patient on the or schedule and nothing by mouth after midnight 07/20/19 19:13 Consultation #2: Hospitalist consult information. Hospitalist to admit patient. 07/20/19 19:14 ED Medical Decision Making - Lab Data Result diagrams: 07/20/19 14:29 07/20/19 14:29 - Radiology Data Radiology results: report reviewed CT ABDOMEN AND PELVIS WITH CONTRAST INDICATION: abd pain CONTRAST: Oral, 100 cc Omnipaque 300 IV COMPARISON: None available. All CT scans at this location are performed using CT dose reduction for ALARA by means of automated exposure control. FINDINGS: Spinal electrodes are seen in the lower thoracic region. Lung bases are clear of infiltrates. No pneumoperitoneum is seen. In the midline appearing to be immediately superior to the umbilicus, a moderate fatty abdominal wall hernia is seen without obvious acute change and without bowel. This hernia sac measures a maximal diameter of 8.5 cm with the neck of the hernia measuring 2.3 cm. No other significant herniations are seen. Gallbladder and bile ducts appear within normal limits. Pancreas shows no abnormalities. Liver and spleen show no abnormalities. Small renal cysts and probable cysts are seen. No urinary obstructive changes are noted. No lymphadenopathy is seen. No evidence of bowel obstruction is noted. No free fluid is seen. Small right scrotal hydrocele is virtually visualized. IMPRESSION: 1. No acute abnormalities are seen 2. Moderate size fatty midline abdominal wall hernia as above DUPLEX DOPPLER LOWER EXTREMITY VEINS, RIGHT INDICATION: right leg pain. TECHNIQUE: Duplex doppler imaging was performed through the veins of the right lower extremity using venous compression and other maneuvers. COMPARISON: No relevant prior imaging study available. FINDINGS: Right Common femoral vein: Negative. Right Superficial femoral vein: Negative. Right Popliteal vein: Negative. Right Calf veins: Negative. Additional findings: None.. IMPRESSION: 1. No sonographic evidence for DVT in the right lower extremity. - Medical Decision Making Patient is a 54-year-old mellitus since emergency room with intractable abdominal pain and right lower extremity pain. Patient had an ultrasound of his right lower extremity which was negative for DVT. Patient had a CT done which showed a umbilical hernia filled with fat. No bowel within the hernia. No obstruction noted. Gen. surgery was consulted for management. Gen. surgery recommends admission to the hospitalist service and surgical repair in the morning since the umbilical hernia so tender and non-reducible. Patient's labs unremarkable. - Differential Diagnosis incarcerated hernia, abdominal pain, obstruction, DVT, leg pain. Knee spra Critical Care Time: Yes Critical care time in (mins) excluding proc time.: 35 Critical care attestation.: If time is entered above; I have spent that time in minutes in the direct care of this critically ill patient, excluding procedure time. Critical Care Time: 35 minutes ED Disposition Clinical Impression: Umbilical hernia Qualifiers: Obstruction and gangrene presence: without obstruction or gangrene Qualified Code(s): K42.9 - Umbilical hernia without obstruction or gangrene Abdominal pain Qualifiers: Abdominal location: periumbilical Qualified Code(s): R10.33 - Periumbilical pain Knee pain Qualifiers: Chronicity: acute Laterality: right Qualified Code(s): M25.561 - Pain in right knee Lower extremity pain Qualifiers: Laterality: right Qualified Code(s): M79.604 - Pain in right leg Knee sprain Qualifiers: Encounter type: initial encounter Involved ligament of knee: unspecified ligament Laterality: right Qualified Code(s): S83.91XA - Sprain of unspecified site of right knee, initial encounter Disposition: OP ADMIT IP TO THIS HOSP Is pt being admited?: Yes Does the pt Need Aspirin: No Condition: Critical Time of Disposition: 19:20
[2019-07-20 15:26] LABS: Basophils # (Auto) 0.1 K/mm3 (0.0-0.1); Eosinophils # (Auto) 0.1 K/mm3 (0.0-0.4); Eosinophils % (Auto) 1.3 % (0.0-4.3); Monocytes # (Auto) 0.6 K/mm3 (0.0-0.8); Monocytes % (Auto) 6.6 % (0.0-7.3)
[2019-07-20 15:54] LABS: Alanine Aminotransferase 15 units/L (7-56); Albumin 4.1 g/dL (3.9-5); BUN/Creatinine Ratio 19; Blood Urea Nitrogen 15 mg/dL (9-20); Calcium 9.1 mg/dL (8.4-10.2); Hemolysis Index 22
[2019-07-20 16:53] LABS: Hematocrit 41.2 % (35.5-45.6); Hemoglobin 14.9 gm/dl (11.8-15.2); Lymphocytes % (Auto) 30.3 % (13.4-35.0); Mean Corpuscular HGB Conc 36 % (32-34); Mean Corpuscular Volume 93 fl (84-94); Platelet Count 247 K/mm3 (140-440); Red Blood Count 4.45 M/mm3 (3.65-5.03); Red Cell Distribution Width 12.9 % (13.2-15.2)
[2019-07-20 16:54] LABS: Basophils % (Auto) 0.8 % (0.0-1.8); Lymphocytes # (Auto) 2.9 K/mm3 (1.2-5.4)
--- NOTE | 2019-07-20 17:37 | Cat Scan Report ---
CT ABDOMEN AND PELVIS WITH CONTRAST INDICATION: abd pain CONTRAST: Oral, 100 cc Omnipaque 300 IV COMPARISON: None available. All CT scans at this location are performed using CT dose reduction for ALARA by means of automated e xposure control. FINDINGS: Spinal electrodes are seen in the lower thoracic region. Lung bases are clear of infiltrate s. No pneumoperitoneum is seen. In the midline appearing to be immediately superior to the umbilicus, a moderate fatty abdominal wall hernia is seen without obvious acute change and without bowel. This hernia sac measures a maximal diameter of 8.5 cm with the neck of the hernia measuring 2.3 cm. No oth er significant herniations are seen. Gallbladder and bile ducts appear within normal limits. Pancreas shows no abnormalities. Liver and spleen show no abnormalities. Small renal cysts and probable cysts are seen. No urinary obstructive changes are noted. No lymphadenopathy is seen. No evidence of bowel obstruction is noted. No free fluid is seen. Small right scrotal hydrocele is virtually visualized. IMPRESSION: 1. No acute abnormalities are seen 2. Moderate size fatty midline abdominal wall hernia as above Signer Name: Torsten Goyal MD Signed: 07/20/2019 5:32 PM Workstation Name: [id number]
[2019-07-20 18:15] LABS: Bilirubin,Urine NEG (Negative); Blood,Urine SM (Negative); Color,Urine Yellow (Yellow); Mucus,Urine FEW /HPF; Protein,Urine <15 mg/dL mg/dL (Negative); Urobilinogen,Urine < 2.0 mg/dL (<2.0)
[2019-07-20] MEDS ORDERED: HYDROmorphone 2 MG/1 ML INJ IM ONE (18:58)
[2019-07-20] MEDS ORDERED: SODIUM CHLORIDE 0.9% 1000 ML 1,000 ML ONE (19:02)
[2019-07-20] MEDS ORDERED: HYDROmorphone 2 MG/1 ML INJ IV ONE (19:03)
[2019-07-20] MEDS ORDERED: SODIUM CHLORIDE 0.9% 1000 ML IV SOLN IV SCH (19:15)
--- NOTE | 2019-07-20 19:34 | Consultation ---
History of Present Illness Consult date: 07/20/19 Reason for consult: hernia Chief complaint: abdominal pain - History of present illness History of present illness: 54 year old male with a more than 4 year history of ventral hernia that has not been reduced in as many years and progressively gotten larger. it has been the size it currently is for at least two months. over the past two weeks he says that the hernia has become more painful and he came to the hospital after being sent here from [facility] for the complaint of abdominal pain and right leg pain. He denies nausea and vomiting. he had a CT scan of the abdomen and pelvis showed an incarcerated ventral hernia with omentum. No bowel was involved in the hernia and no signs of bowel obstruction. pain is 3/10 when he is not pressing on it. Past History Past Medical History: other (bipolar) Past Surgical History: Other (neck and wrist surgery) Medications and Allergies Allergies Allergy/AdvReac Type Severity Reaction Status Date / Time Penicillins Allergy Unknown Verified 06/12/19 12:51 Home Medications Medication Instructions Recorded Confirmed Last Taken Type Cyclobenzaprine [Flexeril] 10 mg PO BID PRN #20 tablet 06/13/18 05/16/19 Unknown Rx Menthol/Camphor [[place] 1 applicatio TP TID PRN #1 tube 06/13/18 05/16/19 Unknown Rx Ointment] Naproxen [Naprosyn] 500 mg PO BID PRN #30 tablet 06/13/18 05/16/19 Unknown Rx Azithromycin [Zithromax Z-PATTI] 250 mg PO DAILY #6 tablet 07/15/18 05/16/19 Unknown Rx Ibuprofen [Motrin] 600 mg PO Q8H PRN #20 tablet 07/15/18 05/16/19 Unknown Rx Acetaminophen/Codeine [Tylenol 1 tab PO Q6H PRN #15 tab 12/03/18 05/16/19 Unknown Rx /Codeine # 3 tab] Cyclobenzaprine [Flexeril] 10 mg PO TID PRN #21 tablet 12/03/18 05/16/19 Unknown Rx Ibuprofen [Motrin] 800 mg PO Q8HR PRN #20 tablet 12/03/18 05/16/19 Unknown Rx Butalb/Acetaminophen/Caffeine 1 cap PO Q8HR PRN #12 cap 06/12/19 Unknown Rx [Fioricet 50-300-40 mg CAP] Active Meds: Active Medications Sodium Chloride (Nacl 0.9% 1000 Ml) 1,000 ml IV NOW SUNITA Last Admin: 07/20/19 19:05 Dose: 1,000 ml Documented by: Review of Systems - Constitutional no fever, no chills, no sweats - Respiratory no shortness of breath - Gastrointestinal abdominal pain, no nausea, no vomiting - Genitourinary no dysuria Exam Vital Signs Temp Pulse Resp BP Pulse Ox 98 F 83 18 142/91 100 07/20/19 13:51 07/20/19 13:51 07/20/19 13:51 07/20/19 13:51 07/20/19 13:51 - General physical appearance Positive: well developed, well nourished, no distress - Respiratory Positive: normal expansion, normal respiratory effort - Extremities Extremities: no ischemia - Abdomen Abdomen: Present: soft Hernia: umbilical, incarcerated, other (mild erythema over area, tender to palpation. ) Results - Labs 07/20/19 14:29 07/20/19 14:29 Abnormal lab results 07/20/19 07/20/19 07/20/19 Range/Units 14:29 14:29 17:56 MCH 33 H (28-32) pg MCHC 36 H (32-34) % RDW 12.9 L (13.2-15.2) % Chloride 107.1 H (98-107) mmol/L Ur Specific [place] 1.042 H (1.003-1.030) Diabetes panel 07/20/19 Range/Units 14:29 Sodium 142 (137-145) mmol/L Potassium 4.0 (3.6-5.0) mmol/L Chloride 107.1 H (98-107) mmol/L Carbon Dioxide 22 (22-30) mmol/L BUN 15 (9-20) mg/dL Creatinine 0.8 (0.8-1.5) mg/dL Glucose 84 (75-100) mg/dL Calcium 9.1 (8.4-10.2) mg/dL AST 15 (5-40) units/L ALT 15 (7-56) units/L Alkaline Phosphatase 66 (35-129) units/L Total Protein 6.8 (6.3-8.2) g/dL Albumin 4.1 (3.9-5) g/dL Calcium panel 07/20/19 Range/Units 14:29 Calcium 9.1 (8.4-10.2) mg/dL Albumin 4.1 (3.9-5) g/dL Pituitary panel 07/20/19 Range/Units 14:29 Sodium 142 (137-145) mmol/L Potassium 4.0 (3.6-5.0) mmol/L Chloride 107.1 H (98-107) mmol/L Carbon Dioxide 22 (22-30) mmol/L BUN 15 (9-20) mg/dL Creatinine 0.8 (0.8-1.5) mg/dL Glucose 84 (75-100) mg/dL Calcium 9.1 (8.4-10.2) mg/dL Adrenal panel 07/20/19 Range/Units 14:29 Sodium 142 (137-145) mmol/L Potassium 4.0 (3.6-5.0) mmol/L Chloride 107.1 H (98-107) mmol/L Carbon Dioxide 22 (22-30) mmol/L BUN 15 (9-20) mg/dL Creatinine 0.8 (0.8-1.5) mg/dL Glucose 84 (75-100) mg/dL Calcium 9.1 (8.4-10.2) mg/dL Total Bilirubin 0.30 (0.1-1.2) mg/dL AST 15 (5-40) units/L ALT 15 (7-56) units/L Alkaline Phosphatase 66 (35-129) units/L Total Protein 6.8 (6.3-8.2) g/dL Albumin 4.1 (3.9-5) g/dL Assessment and Plan 54 year old male with ventral hernia incarcerated with omentum. stable and afebrile. will take tomorrow for robotic hernia repair with Dr. Angel. pain control. NPO after midnight. can have ice water tonight.
[2019-07-20] MEDS ORDERED: ACETAMINOPHEN 325 MG TAB PO PRN (20:17)
[2019-07-20] MEDS ORDERED: MORPHINE 2 MG/1 ML INJ IV PRN (20:17)
[2019-07-20] MEDS ORDERED: ONDANSETRON 4 MG/2 ML INJ IV PRN (20:17)
[2019-07-20] MEDS ORDERED: SODIUM CHLORIDE 0.9% 1000 ML 1,000 ML IV SCH (20:30)
--- NOTE | 2019-07-20 21:11 | History and Physical Report ---
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 Pt states that he's had small abdominal hernia for several years. He recently started working out and is unsure whether or not he strained a muscle. Over the past 2 weeks he started experiencing abdominal pain. The abdominal pain is diffuse. He describes it at sharp and rates it 7/10. It is aggravated with movement and relieved with rest. Pt also complains of right lower extremity pain. The leg pain is constant, and described as achy. He rates it 4/10. Denies SI/HI, headache, fever, n/v, or recent injury/trauma to leg. Past History Past Medical History: arthritis, other (bipolar, schizoaffective disorder, stenosis neck, neurostimulator in lower back, headaches) Past Surgical History: Other (neck and wrist surgery) Social history: smoking (smokes one pack per day) Family history: no significant family history Medications and Allergies Allergies Allergy/AdvReac Type Severity Reaction Status Date / Time Penicillins Allergy Unknown Verified 06/12/19 12:51 Home Medications Medication Instructions Recorded Confirmed Last Taken Type Cyclobenzaprine [Flexeril] 10 mg PO BID PRN #20 tablet 06/13/18 07/20/19 Unknown Rx Butalb/Acetaminophen/Caffeine 1 cap PO Q8HR PRN #12 cap 06/12/19 07/20/19 Unknown Rx [Fioricet 50-300-40 mg CAP] Active Meds: Active Medications Acetaminophen (Tylenol) 650 mg PO Q4H PRN PRN Reason: Pain MILD(1-3)/Fever >100.5/MENDOZA Sodium Chloride (Nacl 0.9% 1000 Ml) 1,000 mls @ 100 mls/hr IV DIRECT SUNITA Morphine Sulfate (Morphine) 2 mg IV Q4H PRN PRN Reason: Pain, Moderate (4-6) Nicotine (Habitrol) 14 mg TD QDAY SUNITA Ondansetron HCl (Zofran) 4 mg IV Q8H PRN PRN Reason: Nausea And Vomiting Sodium Chloride (Sodium Chloride Flush Syringe 10 Ml) 10 ml IV BID SUNITA Sodium Chloride (Sodium Chloride Flush Syringe 10 Ml) 10 ml IV PRN PRN PRN Reason: LINE FLUSH Review of Systems All systems: negative Gastrointestinal: abdominal pain, constipation Musculoskeletal: other (right leg pain) Exam - Physical Exam Narrative exam: Physical exam General appearance: Present: No acute distress, alert and oriented 3, slightly anxious, well-developed, , adult male - EENT Eyes: Present: PERRL, EOM intact ENT: hearing intact, normal dentition - Neck Neck: Present: supple, normal ROM - Respiratory Respiratory effort: Non-labored Respiratory: Clear throughout - Cardiovascular Heart rate: 81 (bpm) Rhythm: Sinus rhythm Heart Sounds: Present: S1 & S2. Absent: rub, click - Extremities Extremities: no ischemia, pulses intact, - Peripheral Assessment Peripheral Pulses: within normal limits - Abdominal General gastrointestinal: soft, diffuse tenderness , normal bowel sounds - Integumentary Integumentary: Present: warm, dry - Musculoskeletal Musculoskeletal: Able to move all extremities -Neurological Neurological: CN II-XII intact - Psychiatric Psychiatric: Appropriate for situation ,cooperative - Constitutional Vitals: Temp Pulse Resp BP Pulse Ox 98.7 F 81 15 129/79 97 07/20/19 19:15 07/20/19 19:15 07/20/19 19:15 07/20/19 19:15 07/20/19 19:15 Results - Labs CBC & Chem 7: 07/20/19 14:29 07/20/19 14:29 Labs: Laboratory Last Values WBC 9.5 K/mm3 (4.5-11.0) 07/20/19 14:29 RBC 4.45 M/mm3 (3.65-5.03) 07/20/19 14:29 Hgb 14.9 gm/dl (11.8-15.2) 07/20/19 14:29 Hct 41.2 % (35.5-45.6) 07/20/19 14:29 MCV 93 fl (84-94) 07/20/19 14:29 MCH 33 pg (28-32) H 07/20/19 14:29 MCHC 36 % (32-34) H 07/20/19 14:29 RDW 12.9 % (13.2-15.2) L 07/20/19 14:29 Plt Count 247 K/mm3 (140-440) 07/20/19 14:29 Lymph % (Auto) 30.3 % (13.4-35.0) 07/20/19 14:29 [place] % (Auto) 6.6 % (0.0-7.3) 07/20/19 14:29 Eos % (Auto) 1.3 % (0.0-4.3) 07/20/19 14:29 Baso % (Auto) 0.8 % (0.0-1.8) 07/20/19 14:29 Lymph # 2.9 K/mm3 (1.2-5.4) 07/20/19 14:29 [place] # 0.6 K/mm3 (0.0-0.8) 07/20/19 14:29 Eos # 0.1 K/mm3 (0.0-0.4) 07/20/19 14:29 Baso # 0.1 K/mm3 (0.0-0.1) 07/20/19 14:29 Seg Neutrophils % 61.0 % (40.0-70.0) 07/20/19 14:29 Seg Neutrophils # 5.8 K/mm3 (1.8-7.7) 07/20/19 14:29 Sodium 142 mmol/L (137-145) 07/20/19 14:29 Potassium 4.0 mmol/L (3.6-5.0) 07/20/19 14:29 Chloride 107.1 mmol/L (98-107) H 07/20/19 14:29 Carbon Dioxide 22 mmol/L (22-30) 07/20/19 14:29 Anion Gap 17 mmol/L 07/20/19 14:29 BUN 15 mg/dL (9-20) 07/20/19 14:29 Creatinine 0.8 mg/dL (0.8-1.5) 07/20/19 14:29 Estimated GFR > 60 ml/min 07/20/19 14:29 BUN/Creatinine Ratio 19 % 07/20/19 14:29 Glucose 84 mg/dL (75-100) 07/20/19 14:29 Calcium 9.1 mg/dL (8.4-10.2) 07/20/19 14:29 Total Bilirubin 0.30 mg/dL (0.1-1.2) 07/20/19 14:29 AST 15 units/L (5-40) 07/20/19 14:29 ALT 15 units/L (7-56) 07/20/19 14:29 Alkaline Phosphatase 66 units/L (35-129) 07/20/19 14:29 Total Protein 6.8 g/dL (6.3-8.2) 07/20/19 14:29 Albumin 4.1 g/dL (3.9-5) 07/20/19 14:29 Albumin/Globulin Ratio 1.5 % 07/20/19 14:29 Lipase 19 units/L (13-60) 07/20/19 14:29 Urine Color Yellow (Yellow) 07/20/19 17:56 Urine Turbidity Clear (Clear) 07/20/19 17:56 Urine pH 6.0 (5.0-7.0) 07/20/19 17:56 Ur Specific [place] 1.042 (1.003-1.030) H 07/20/19 17:56 Urine Protein <15 mg/dl mg/dL (Negative) 07/20/19 17:56 Urine Glucose (UA) Neg mg/dL (Negative) 07/20/19 17:56 Urine Ketones Neg mg/dL (Negative) 07/20/19 17:56 Urine Blood Sm (Negative) 07/20/19 17:56 Urine Nitrite Neg (Negative) 07/20/19 17:56 Urine Bilirubin Neg (Negative) 07/20/19 17:56 Urine Urobilinogen < 2.0 mg/dL (<2.0) 07/20/19 17:56 Ur Leukocyte Esterase Neg (Negative) 07/20/19 17:56 Urine WBC (Auto) 1.0 /HPF (0.0-6.0) 07/20/19 17:56 Urine RBC (Auto) 1.0 /HPF (0.0-6.0) 07/20/19 17:56 Urine Mucus Few /HPF 07/20/19 17:56 - Imaging and Cardiology Imaging and Cardiology: RLE Doppler: FINDINGS: Right Common femoral vein: Negative. Right Superficial femoral vein: Negative. Right Popliteal vein: Negative. Right Calf veins: Negative. Additional findings: None.. IMPRESSION: 1. No sonographic evidence for DVT in the right lower extremity. CT Abdomen/Pelvis: FINDINGS: Spinal electrodes are seen in the lower thoracic region. Lung bases are clear of infiltrates. No pneumoperitoneum is seen. In the midline appearing to be immediately superior to the umbilicus, a moderate fatty abdominal wall hernia is seen without obvious acute change and without bowel. This hernia sac measures a maximal diameter of 8.5 cm with the neck of the hernia measuring 2.3 cm. No other significant herniations are seen. Gallbladder and bile ducts appear within normal limits. Pancreas shows no abnormalities. Liver and spleen show no abnormalities. Small renal cysts and probable cysts are seen. No urinary obstructive changes are noted. No lymphadenopathy is seen. No evidence of bowel obstruction is noted. No free fluid is seen. Small right scrotal hydrocele is virtually visualized. IMPRESSION: 1. No acute abnormalities are seen 2. 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 Will admit to surgical unit for further evaluation and treatment. Moderate size fatty hernia -Seen on CT Abdomen/Pelvis -C/o acute abdominal pain with tenderness to palpation -Continue supportive care -General Surgery (Dr. Davis) consulted with plans for OR in am -NPO at midnight -on IVF Right Leg Pain -Hx of arthritis -RLE Doppler negative -Continue supportive care Tobacco abuse -Current every day smoker -Counseled for cessation -Nicotine patch when necessary DVT PPX -On SCD's Advance Directives: No VTE prophylaxis?: Mechanical Plan of care discussed with patient/family: Yes
[2019-07-20] MEDS: NICOTINE 14 MG/24 HR PATCH TD SCH (23:59)
--- NOTE | 2019-07-21 08:50 | Anesthesia Consultation ---
Anesthesia Consult and Med Hx Date of service: 07/21/19 - Airway Anesthetic Teeth Evaluation: Good ROM Head & Neck: Inadequate (decreased extension s/p fusion; pain with extension) Mental/Hyoid Distance: Adequate Mallampati Class: Class III Intubation Access Assessment: Possibly Difficult - Pulmonary Exam CTA: Yes - Cardiac Exam Cardiac Exam: RRR - Pre-Operative Health Status ASA Pre-Surgery Classification: ASA3 Proposed Anesthetic Plan: General - Pulmonary Hx Smoking: Yes (42 pk yr hx) Hx Respiratory Symptoms: No - Cardiovascular System Hx Hypertension: No Hx Heart Attack/AMI: No - Central Nervous System CVA: No Hx Back Pain: Yes (w/ nerve stimulator in place) Hx Psychiatric Problems: Yes (bipolar and schizoaffective disorders) - Gastrointestinal Hx Gastroesophageal Reflux Disease: No - Endocrine Hx Renal Disease: No Hx Liver Disease: No Hx Insulin Dependent Diabetes: No Hx Non-Insulin Dependent Diabetes: No Hx Thyroid Disease: No - Hematic Hx Anemia: No - Other Systems Hx Obesity: No - Additional Comments Anesthesia Medical History Comments: No hx anesthetic complications.
[2019-07-21] MEDS ORDERED: HYDROmorphone 1 MG/1 ML INJ IV PRN (08:51)
--- NOTE | 2019-07-21 08:51 | Anesthesia Day of Surgery ---
Anesthesia Day of Surgery - Day of Surgery Patient Examined: Yes Patient H&P Reviewed: Yes Patient is NPO: Yes
[2019-07-21] MEDS ORDERED: MIDAZOLAM 2 MG/2 ML INJ IV NR (09:00)
[2019-07-21] MEDS ORDERED: LACTATED RINGERS 1,000 ML IV SCH (09:00)
[2019-07-21] MEDS ORDERED: BUPIVACAINE/PF (0.5%) 5 MG/1 ML 30 ML VIAL INFILTRATI ONE ×2 (09:47→11:07)
[2019-07-21] MEDS ORDERED: LIDOCAINE (1%) 10 MG/1 ML VIAL 20 ML MDV ONE (09:47)
[2019-07-21] MEDS ORDERED: NICOTINE 14 MG/24 HR PATCH TD SCH (10:00)
[2019-07-21] MEDS ORDERED: VANCOMYCIN 1,250 MG in SODIUM CHLORIDE 0.9% 250ML 250 ML IV SCH (10:00)
[2019-07-21] MEDS ORDERED: VANCOMYCIN/NS 1 GM/250 ML 1 GM/250 ML BAG IV NR (10:00)
[2019-07-21] MEDS ORDERED: LIDOCAINE (1%) 10 MG/1 ML VIAL 20 ML MDV INFILTRATI ONE (11:07)
[2019-07-21] MEDS ORDERED: SODIUM CHLORIDE 0.9% IRR 1,500 ML BOTTLE IR ONE (11:08)
[2019-07-21] MEDS ORDERED: HYDROmorphone 1 MG/1 ML INJ ONE (11:10)
[2019-07-21] MEDS ORDERED: ROCURONIUM 50 MG/5 ML INJ IV ONE (11:11)
[2019-07-21] MEDS ORDERED: PROPOFOL 200 MG/20 ML VIAL IV ONE (11:11)
[2019-07-21] MEDS ORDERED: LIDOCAINE MPF (2%) 20 MG/1 ML VIAL 5 ML ONE (11:12)
[2019-07-21] MEDS ORDERED: dexAMETHasone 20 MG/5 ML VIAL ONE (11:13)
[2019-07-21] MEDS ORDERED: ONDANSETRON 4 MG/2 ML INJ ONE (11:14)
[2019-07-21] MEDS ORDERED: LACTATED RINGERS 1,000 ML ONE ×2 (11:20→12:59)
[2019-07-21] MEDS ORDERED: KETOROLAC 30 MG/1 ML INJ ONE (12:47)
[2019-07-21] MEDS ORDERED: GLYCOPYRROLATE 0.4 MG/2 ML INJ ONE (12:47)
[2019-07-21] MEDS ORDERED: NEOSTIGMINE 10MG/10 ML INJ MDV ONE (12:48)
--- NOTE | 2019-07-21 13:02 | Post Operative Note ---
Date of procedure: 07/21/19 Pre-op diagnosis: incarcerated ventral hernia Post-op diagnosis: same Findings: large amount of omentum incarcerated in 1.5 cm hernia defect Procedure: robotic assisted lysis of adhesions, repair of ventral hernia with mesh Anesthesia: AZRA local Surgeon: KUSH JAQUEZ Supervisor Grinding: MICHELINE CAUSEY Estimated blood loss: minimal Pathology: list (incarcerated omentum) Specimen disposition: to lab Condition: stable Disposition: PACU
[2019-07-21] MEDS: oxyCODONE /ACETAMINOPHEN 5-325MG TAB PO PRN ×2 (13:31→21:44)
--- NOTE | 2019-07-21 14:12 | Discharge Summary ---
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 ED with complaints of abdominal pain and right leg pain. Will admit to surgical unit for further evaluation and treatment. * Patient had a successful robotic assisted lysis of adhesions, repair of ventral hernia with mesh * Doppler of the lower extremities showed no DVT. * Patient clinically stable and will follow with surgical team outpatient. Incarcerated Hernia s/p robotic assisted lysis of adhesions, repair of ventral hernia with mesh arthritis Tobacco abuse Disposition: - TO HOME OR SELFCARE Time spent for discharge: 35 mins Core Measure Documentation - Palliative Care Palliative Care/ Comfort Measures: Not Applicable - Core Measures Any of the following diagnoses?: none Exam - Physical Exam Narrative exam: VITAL SIGNS: Reviewed. GENERAL: The patient appears normally developed, Vital signs as documented. HEAD: No signs of head trauma. EYES: Pupils are equal. Extraocular motions intact. EARS: Hearing grossly intact. MOUTH: Oropharynx is normal. NECK: No adenopathy, no JVD. CHEST: Chest with clear breath sounds bilaterally. No wheezes, rales, or rhonchi. CARDIAC: Regular rate and rhythm. S1 and S2, without murmurs, gallops, or rubs. VASCULAR: No Edema. Peripheral pulses normal and equal in all extremities. ABDOMEN: Soft, tender at surgical site, dressing in place.. No rebound or guarding, and no masses palpated. Bowel Sounds normal. MUSCULOSKELETAL: Good range of motion of all major joints. Extremities without clubbing, cyanosis or edema. NEUROLOGIC EXAM: Alert and oriented x 3 No focal sensory or strength deficits. Speech normal. Follows commands. PSYCHIATRIC: Mood normal. SKIN: detail exam as documented in skin assessment - Constitutional Vitals: Temp Pulse Resp BP Pulse Ox 97.6 F 84 20 135/87 95 07/21/19 14:01 07/21/19 14:01 07/21/19 14:01 07/21/19 14:01 07/21/19 14:01 Plan Activity: advance as tolerated, avoid flexion Diet: low fat Special Instructions: record daily BP diary Follow up with: KUSH JAQUEZ DO [Staff Physician] - 14 Days ARDMORE NIRMALALTONCAMBRIDGE MD TESFAYE [Primary Care Provider] - 3-5 Days Prescriptions: Ibuprofen [Motrin 800 MG tab] 800 mg PO Q8HR PRN #14 tablet PRN Reason: Pain , Severe (7-10) oxyCODONE /ACETAMINOPHEN [Percocet 5/325 mg] 1 tab PO Q6H PRN #10 tablet PRN Reason: Pain, Moderate (4-6) Sennosides [Senna] 17.2 mg PO BID #30 capsule
--- NOTE | 2019-07-21 15:35 | Operative Report ---
PREOPERATIVE DIAGNOSIS: Incarcerated ventral hernia. POSTOPERATIVE DIAGNOSIS: Incarcerated ventral hernia. FINDINGS: Large amount of omentum incarcerated, 1.5 cm hernia defect. PROCEDURE: Robotic-assisted lysis of adhesions, repair of ventral hernia with mesh. ANESTHESIA: General endotracheal anesthesia, local. SURGEON: Cristela Angel DO. STRIP MILL OPERATOR: Crispin Davis MD ESTIMATED BLOOD LOSS: Minimal. PATHOLOGY: Incarcerated omentum. SPECIMEN DISPOSITION: To lab. CONDITION AND DISPOSITION: The patient is stable to PACU. HISTORY OF PRESENT ILLNESS AND INDICATION: The patient is a 54-year-old male who presented to the Emergency Room with complaints of abdominal pain. He has a longstanding history of a ventral hernia, which is not reducible for many years. He was found to have tenderness to palpation in that area, which was more than baseline and the patient was admitted to the hospital. It was recommended that he undergo repair of the hernia. All risks, benefits and alternatives to surgery were discussed with the patient and questions answered. Consent obtained. PROCEDURE IN DETAIL: The patient was identified in preoperative area, taken back to the operating room, placed on the operating table in supine position. After anesthesia was induced, bilateral arms were tucked and all bony prominences padded appropriately. The abdomen was prepped and draped in the usual sterile fashion. Timeout was performed. Local anesthetic was infiltrated into all skin incision sites prior to incision. A esperanza incision was made in the left upper quadrant at Zavala's point through which a Veress needle was inserted. The Veress needle position was confirmed using saline drop test and the abdomen insufflated to 15 mmHg. Once the abdomen was insufflated, a 5 mm right upper quadrant Optiview trocar was placed under direct visualization. The abdomen was inspected. There was no underlying injury to any of the abdominal structures. The Veress needle was identified and removed. Immediately, we were able to visualize a ventral hernia directly above the umbilicus with a large amount of incarcerated omentum. No bowel was involved in the hernia. We proceeded to place additional trocars, a 12 mm balloon trocar in the right mid lateral abdomen and a right lower quadrant 8 mm robotic trocar under direct visualization. The 5 mm right upper quadrant trocar was replaced with an 8 mm robotic trocar. A Ray-Warren was placed into the abdomen and the robot was then docked. A fenestrated bipolar was placed in arm #2 and a monopolar scissor in arm #1. The surgeon was transferred to the console. With the aid of external pressure by the family services assistant surgeon, a very large amount of omentum was reduced from the hernia. The omentum was incarcerated and densely adherent to the hernia. Lysis of adhesions was performed until the entire incarcerated omentum was removed and placed back in anatomic position. There was some serosanguineous fluid in the hernia sac as well. Once all the omentum was reduced, I then proceeded to create a preperitoneal flap. Approximately 4 cm from the hernia defect, the peritoneum was scored and a preperitoneal flap was created in the avascular plane. Once the hernia was encountered, the hernia sac was very meticulously reduced and the flap carried to the other side of the hernia defect in order to accommodate mesh. The hernia defect measured 1.5 cm. Once the flap was created, an 11 cm round, flat Bard mesh was used to repair the defect. This was cut to size and placed in the abdomen along with suture material under direct visualization. The hernia defect was closed with running 0 V-Loc suture after the abdominal pressure was dropped to 8 mmHg. The mesh was then centered over the hernia defect and sutured into all 4 quadrants using 2-0 Vicryl interrupted suture. The mesh was seen to lay flat and had adequate coverage circumferentially. The flap was checked for hemostasis and once this was carefully ensured, it was reapproximated using 3-0 V-Loc running suture. There were 2-3 small defects in the peritoneum, which were closed using 2-0 Vicryl [id number] sutures. The entire mesh was covered and there was no exposure to the intra-abdominal structures. The robot was then undocked and the surgeon scrubbed back in. The remainder of the case was performed laparoscopically. The suture material along with needles and Ray-Warren were removed from the abdomen. Initial sharp, instrument and sponge counts were correct. The 12 mm port was then removed and the fascia closed with an interrupted 0 Vicryl suture using Angel-Adwoa device. The remainder of the ports were removed under direct visualization and the abdomen slowly desufflated. The incisions were once again infiltrated with local anesthetic and skin closed with 4-0 Monocryl subcuticular stitches and skin glue. At the end of the case, all sponge, instrument and sharp counts were correct x 2. The patient was awoken from anesthesia, extubated, and taken to PACU in stable condition. JOB# [id number]/AZUL
[2019-07-21] MEDS: NICOTINE 14 MG/24 HR PATCH TD SCH (16:21)
--- NOTE | 2019-07-21 17:28 | Post Anesthesia Evaluation ---
- Post Anesthesia Evaluation Patient Participated: Yes Airway Patent: Yes Stable Respiratory Function: Yes Nausea/Vomiting: No Temp > 96.8F: Yes Pain Manageable: Yes Adequeate Hydration: Yes Anesthesia Complications: No Block Receding Appropriately: Not Applicable Patient on Ventilator: No
[2019-07-22] MEDS: ALUM-MAG HYDROXIDE-SIMETHICONE 200-200-20MG/5ML ORAL LIQD 30 ML PO PRN ×2 (04:51→11:28)
--- NOTE | 2019-07-22 07:36 | Discharge Summary ---
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 Will admit to surgical unit for further evaluation and treatment. * Patient had a successful robotic assisted lysis of adhesions, repair of ventral hernia with mesh * Patient is a voluntary residence as at [facility] * Doppler of the lower extremities showed no DVT. * Patient clinically stable and will follow with surgical team outpatient. * Overnight patient reported an episode of heart burn, it was resolved. * He is stable this am for discharge CTAP * IMPRESSION: 1. No acute abnormalities are seen 2. Moderate size fatty midline abdominal wall hernia as above Doppler * IMPRESSION: 1. No sonographic evidence for DVT in the right lower extremity. Incarcerated Hernia s/p robotic assisted lysis of adhesions, repair of ventral hernia with mesh arthritis Tobacco abuse Disposition: DC-01 TO HOME OR SELFCARE Time spent for discharge: 35 mins Core Measure Documentation - Palliative Care Palliative Care/ Comfort Measures: Not Applicable - Core Measures Any of the following diagnoses?: none Exam - Physical Exam Narrative exam: VITAL SIGNS: Reviewed. GENERAL: The patient appears normally developed, Vital signs as documented. HEAD: No signs of head trauma. EYES: Pupils are equal. Extraocular motions intact. EARS: Hearing grossly intact. MOUTH: Oropharynx is normal. NECK: No adenopathy, no JVD. CHEST: Chest with clear breath sounds bilaterally. No wheezes, rales, or rhonchi. CARDIAC: Regular rate and rhythm. S1 and S2, without murmurs, gallops, or rubs. VASCULAR: No Edema. Peripheral pulses normal and equal in all extremities. ABDOMEN: Soft, tender at surgical site, dressing in place.. No rebound or guarding, and no masses palpated. Bowel Sounds normal. MUSCULOSKELETAL: Good range of motion of all major joints. Extremities without clubbing, cyanosis or edema. NEUROLOGIC EXAM: Alert and oriented x 3 No focal sensory or strength deficits. Speech normal. Follows commands. PSYCHIATRIC: Mood normal. SKIN: detail exam as documented in skin assessment - Constitutional Vitals: Temp Pulse Resp BP Pulse Ox 98.3 F 93 H 20 131/86 90 07/22/19 05:18 07/22/19 05:18 07/22/19 05:18 07/22/19 05:18 07/22/19 05:18 Plan Follow up with: KUSH JAQUEZ DO [Staff Physician] - 14 Days [place] MARGIE LOJA MD [Primary Care Provider] - 3-5 Days Prescriptions: Ibuprofen [Motrin 800 MG tab] 800 mg PO Q8HR PRN #14 tablet PRN Reason: Pain , Severe (7-10) oxyCODONE /ACETAMINOPHEN [Percocet 5/325 mg] 1 tab PO Q6H PRN #10 tablet PRN Reason: Pain, Moderate (4-6) Sennosides [Senna] 17.2 mg PO BID #30 capsule
[2019-07-22] MEDS: oxyCODONE /ACETAMINOPHEN 5-325MG TAB PO PRN (09:09)
[2019-07-22] MEDS: NICOTINE 14 MG/24 HR PATCH TD SCH (09:09)
[2019-07-22 12:04] VITALS: BP 167/100
== END 2019-07-22 12:10 | disposition home or self-care (01) | DRG 337 ==
LOC: ED 13:45 → 3A 19:21
PROVIDERS: ADMIT Internal Medicine; ATTEND Internal Medicine
PROC: 0WUF4JZ Supplement Abdominal Wall with Synthetic Substitute, Percutaneous Endoscopic Approach (ICD-10-PCS; principal; 2019-07-21)
PROC: 0DNW4ZZ Release Peritoneum, Percutaneous Endoscopic Approach (ICD-10-PCS; 2019-07-21)
PROC: 8E0W4CZ Robotic Assisted Procedure of Trunk Region, Percutaneous Endoscopic Approach (ICD-10-PCS; 2019-07-21)
DX: K43.6 Other and unspecified ventral hernia with obstruction, without gangrene (principal); K42.9 Umbilical hernia without obstruction or gangrene; F17.210 Nicotine dependence, cigarettes, uncomplicated; M19.90 Unspecified osteoarthritis, unspecified site; F25.0 Schizoaffective disorder, bipolar type; K66.0 Peritoneal adhesions (postprocedural) (postinfection); M48.02 Spinal stenosis, cervical region; G43.909 Migraine, unspecified, not intractable, without status migrainosus; S83.91XA Sprain of unspecified site of right knee, initial encounter; Z71.6 Tobacco abuse counseling; Z88.0 Allergy status to penicillin; X58.XXXA Exposure to other specified factors, initial encounter; Y93.89 Activity, other specified; Y92.89 Other specified places as the place of occurrence of the external cause
CPT/HCPCS: 36415; 74177; 80053; 81001; 83690; 85025; 87116; 88305; 96365; G0378; C1781; J1100; J1170; J1885; J2250; J2405; J2704; J2710; J3370; J7030; J7050; J7120; Q9967

== ENCOUNTER 2019-09-11 14:31 | Emergency (ER) | payer MEDICARE ==
[2019-09-11 14:44] VITALS: BP 116/76
--- NOTE | 2019-09-11 17:50 | Emergency Department Report ---
Chief Complaint: Extremity Injury, Lower Stated Complaint: FEET/KNEE PAIN Time Seen by Provider: 09/11/19 17:40 - HPI History of Present Illness: chronic feet pain for 20 years states he does alot of walking no fall or injury no numbness or weakness states his big toenails have been peeling back for several years no fever no numbness or weakness pt is ambulatory PMHx hernia allergy: pcn vitals are normal on exam: non toxic appearing, no acute distress left and right big toenail shows signs of onchomycosis left foot is normal, FROM, neurovascularly intact right plantar foot just below the toes shows mild erythema and peeling present, no ulceration, no drainage, no increased warmth, no signs of infection examination consistent with onchomycosis and tinea pedis advised pt to please use clotrimazole or another anti fungal ointment on the feet. wash your socks daily. avoid getting the feet wet or sweaty. follow up with a fitness director. follow up with a primary care doctor. return to the emergency room for any new or worsening symptoms. Patient is presenting with a nonmedical emergency at this time, medical screening examination performed and there is no threat to life or limb at this time Will refer patient to a fitness director and a primary care physician discussed strict return precautions - Exam Vital Signs: Vital Signs 09/11/19 14:42 Temperature 97.5 F L Pulse Rate 69 Respiratory 13 Rate Blood Pressure 116/76 [Left] O2 Sat by Pulse 96 Oximetry MSE screening note: Focused history and physical exam performed. ED Disposition for MSE Clinical Impression: Anabel onychomycosis Tinea pedis Qualifiers: Laterality: bilateral Qualified Code(s): B35.3 - Tinea pedis Disposition: Z-07 MED SCREENING EXAM-LEFT Is pt being admited?: No Does the pt Need Aspirin: No Condition: Stable Instructions: Tinea Pedis (ED) Additional Instructions: please use clotrimazole or another anti fungal ointment on the feet. wash your socks daily. avoid getting the feet wet or sweaty. follow up with a fitness director. follow up with a primary care doctor. return to the emergency room for any new or worsening symptoms. Referrals: TOSHIA CARTAGENA DPM [Staff Physician] - 2-3 Days CAIN CESAR MD [Staff Physician] - 2-3 Days DANIELA GRIJALVA DPM [Staff Physician] - 2-3 Days BRUCE CASTRO MD [Staff Physician] - 2-3 Days [facility] [Provider Group] - 2-3 Days [facility] [Outside] - 2-3 Days Time of Disposition: 17:51 Print Language: GUYANESE
== END 2019-09-11 18:52 | disposition left against medical advice (07) ==
LOC: ED 14:31
DX: B35.1 Tinea unguium (principal); B35.3 Tinea pedis; Z88.0 Allergy status to penicillin
CPT/HCPCS: 99282

== ENCOUNTER 2019-09-15 16:23 | Emergency (ER) | payer MEDICARE ==
[2019-09-15 17:28] VITALS: BP 143/90
--- NOTE | 2019-09-15 17:28 | Emergency Department Report ---
ED Lower Extremity HPI - General Chief Complaint: Extremity Injury, Lower Stated Complaint: (R) LEG PAIN Time Seen by Provider: 09/15/19 17:09 Source: patient Mode of arrival: Ambulatory Limitations: No Limitations - History of Present Illness Initial Comments: This is a 54-year-old female nontoxic, well nourished in appearance, no acute signs of distress presents to the ED with c/o of chronic right knee pain x1 year. Denies any injruies or trauma. Patient denies followed up with orthopedic. Denies decreased ROM, joint swelling, redness, or abnormal gait. Denies any fever, chills, nausea, vomiting, headache, stiff neck, chest pain or shortness of breath. Patient denies any numbness or tingling. PMH includes PNC. MD Complaint: knee injury -: days(s) Injury: Knee: Right Severity: mild Severity scale (0 -10): 8 Improves With: immobilization Worsens With: weight bearing, movement, palpation Associated Symptoms: swelling, ambulatory. denies: snap/pop sensation, numbness, tingling, unable to bear weight, able to partially bear weight - Related Data Previous Rx's Medication Instructions Recorded Last Taken Type Cyclobenzaprine [Flexeril 10 MG 10 mg PO BID PRN #20 tablet 06/13/18 Unknown Rx TAB] Butalb/Acetaminophen/Caffeine 1 cap PO Q8HR PRN #12 cap 06/12/19 Unknown Rx [Fioricet 50-300-40 mg CAP] Ibuprofen [Motrin 800 MG tab] 800 mg PO Q8HR PRN #14 tablet 07/21/19 Unknown Rx Sennosides [Senna] 17.2 mg PO BID #30 capsule 07/21/19 Unknown Rx oxyCODONE /ACETAMINOPHEN [Percocet 1 tab PO Q6H PRN #10 tablet 07/21/19 Unknown Rx 5/325 mg] Allergies Allergy/AdvReac Type Severity Reaction Status Date / Time Penicillins Allergy Unknown Verified 06/12/19 12:51 ED Review of Systems ROS: Stated complaint: (R) LEG PAIN Other details as noted in HPI Constitutional: denies: chills, fever Eyes: denies: eye pain, eye discharge, vision change ENT: denies: ear pain, throat pain Respiratory: denies: cough, shortness of breath, wheezing Cardiovascular: denies: chest pain, palpitations Endocrine: no symptoms reported Gastrointestinal: denies: abdominal pain, nausea, diarrhea Genitourinary: denies: urgency, dysuria Musculoskeletal: denies: back pain, joint swelling, arthralgia Skin: denies: rash, lesions Neurological: denies: headache, weakness, paresthesias Psychiatric: denies: anxiety, depression Hematological/Lymphatic: denies: easy bleeding, easy bruising ED Past Medical Hx - Past Medical History Hx Hypertension: No Hx Heart Attack/AMI: No Hx Liver Disease: No Hx Renal Disease: No Hx Arthritis: Yes Hx Headaches / Migraines: Yes Hx Psychiatric Treatment: Yes (BIPOLAR,SCHIZO-EFFECTIVE DISORDER) Hx Asthma: No Additional medical history: "neuro stimulator in lower back" &* "stenosis in neck", umbilical hernia - Surgical History Additional Surgical History: 98"neck surgery" "wrist surgery". hernia sx - Social History Smoking Status: Never Smoker Substance Use Type: None - Medications Home Medications: Home Medications Medication Instructions Recorded Confirmed Last Taken Type Cyclobenzaprine [Flexeril 10 MG 10 mg PO BID PRN #20 tablet 06/13/18 07/20/19 Unknown Rx TAB] Butalb/Acetaminophen/Caffeine 1 cap PO Q8HR PRN #12 cap 06/12/19 07/20/19 Unknown Rx [Fioricet 50-300-40 mg CAP] Ibuprofen [Motrin 800 MG tab] 800 mg PO Q8HR PRN #14 tablet 07/21/19 Unknown Rx Sennosides [Senna] 17.2 mg PO BID #30 capsule 07/21/19 Unknown Rx oxyCODONE /ACETAMINOPHEN [Percocet 1 tab PO Q6H PRN #10 tablet 07/21/19 Unknown Rx 5/325 mg] ED Physical Exam - General Limitations: No Limitations General appearance: alert, in no apparent distress - Head Head exam: Present: atraumatic, normocephalic - Neck Neck exam: Present: normal inspection, full ROM. Absent: tenderness, meningismus, lymphadenopathy - Extremities Exam Extremities exam: Present: normal inspection, full ROM, tenderness, normal capillary refill. Absent: joint swelling, calf tenderness - Expanded Lower Extremity Exam Right Hip exam: Present: normal inspection, full ROM. Absent: tenderness, swelling Upper Leg exam: Present: normal inspection, full ROM. Absent: tenderness, swelling Knee exam: Present: normal inspection, full ROM, tenderness, full knee extension. Absent: swelling, abrasion, laceration, ecchymosis, deformity, crepidus, dislocation, erythema, effusion, pain w/ pronation/supination, posterior draw sign, pain/laxity with valgus, pain/laxity with varus Lower Leg exam: Present: normal inspection, full ROM. Absent: tenderness, swelling Ankle exam: Present: normal inspection, full ROM. Absent: tenderness, swelling Foot/Toe exam: Present: normal inspection, full ROM. Absent: tenderness, swelling Neuro vascular tendon exam: Present: no vascular compromise Gait: Positive: observed and normal - Back Exam Back exam: Present: normal inspection, full ROM. Absent: tenderness, CVA tenderness (R), CVA tenderness (L), muscle spasm, paraspinal tenderness, vertebral tenderness, rash noted - Neurological Exam Neurological exam: Present: alert, oriented X3, normal gait - Psychiatric Psychiatric exam: Present: normal affect, normal mood - Skin Skin exam: Present: warm, dry, intact, normal color. Absent: rash ED Course - Reevaluation(s) Reevaluation #1: 09/15/19 17:29 Patient is speaking in full sentences with no signs of distress noted. ED Lower Extremity MDM - Medical Decision Making This is a 54-year-old male that presents with chronic knee pain. Patient is stable and was examined by me. Exam does not show any acute conditions. No joint effusion, no redness, no decreased ROM. Normal gait. Patient was instructed to Follow-up with a orthopedic doctor in 3-5 days or if symptoms worsen and continue return to emergency room as soon as possible. At time of discharge, the patient does not seem toxic or ill in appearance. No acute signs of distress noted. Patient agrees to discharge treatment plan of care. No further questions noted by the patient. Critical care attestation.: If time is entered above; I have spent that time in minutes in the direct care of this critically ill patient, excluding procedure time. ED Disposition Clinical Impression: Chronic knee pain Qualifiers: Laterality: right Qualified Code(s): M25.561 - Pain in right knee; G89.29 - Other chronic pain Disposition: MED SCREENING EXAM-LEFT Is pt being admited?: No Does the pt Need Aspirin: No Condition: Stable Additional Instructions: Follow-up with a orthopedic doctor in 3-5 days or if symptoms worsen and continue return to emergency room as soon as possible. Referrals: PRIMARY CARE, [Referring] - 3-5 Days EDVIN BROOKS MD [Staff Physician] - 3-5 Days [facility] [Outside] - 3-5 Days
== END 2019-09-15 18:00 | disposition left against medical advice (07) ==
LOC: ED 16:23
DX: M25.561 Pain in right knee (principal); G89.29 Other chronic pain; M19.90 Unspecified osteoarthritis, unspecified site; G43.909 Migraine, unspecified, not intractable, without status migrainosus
CPT/HCPCS: 99281

== ENCOUNTER 2019-09-17 10:54 | Emergency (ER) | payer MEDICARE ==
[2019-09-17 11:09] VITALS: BP 142/87
--- NOTE | 2019-09-17 11:16 | Emergency Department Report ---
Minor Respiratory - HPI Chief Complaint: Upper Respiratory Infection Stated Complaint: FLU SX Time Seen by Provider: 09/17/19 11:11 Duration: 3 Days Pain Location: Facial, Throat, Nose, Chest Severity: moderate Minor Respiratory: Yes Rhinorrhea, Yes Able to Tolerate Fluids, Yes Cough, Yes Sick Contacts, No Sore Throat, No Hemoptysis, No Chest Pain, No Shortness of Breath, No Fever Other History: CC: "I think I have the flu.". HPI: Mr. Xiao is a 54 yo male who presents with body aches, fatigue, productive cough and nasal congestion. ED Review of Systems ROS: Stated complaint: FLU SX Other details as noted in HPI Constitutional: fever, malaise ENT: congestion Respiratory: cough. 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 hernia sx - Social History Smoking Status: Current Every Day Smoker Substance Use Type: None - Medications Home Medications: Home Medications Medication Instructions Recorded Confirmed Last Taken Type Cyclobenzaprine [Flexeril 10 MG 10 mg PO BID PRN #20 tablet 06/13/18 07/20/19 Unknown Rx TAB] Butalb/Acetaminophen/Caffeine 1 cap PO Q8HR PRN #12 cap 06/12/19 07/20/19 Unknown Rx [Fioricet 50-300-40 mg CAP] Ibuprofen [Motrin 800 MG tab] 800 mg PO Q8HR PRN #14 tablet 07/21/19 Unknown Rx Sennosides [Senna] 17.2 mg PO BID #30 capsule 07/21/19 Unknown Rx oxyCODONE /ACETAMINOPHEN [Percocet 1 tab PO Q6H PRN #10 tablet 07/21/19 Unknown Rx 5/325 mg] DOXYCYCLINE Hyclate [Vibramycin 100 mg PO Q12HR 7 Days #14 capsule 09/17/19 Unknown Rx CAP] Oseltamivir [Tamiflu] 75 mg PO BID 5 Days #10 cap 09/17/19 Unknown Rx Minor Respiratory Exam - Exam General: Vital signs noted. No distress. Alert and acting appropriately. well appearing NAD HEENT: Yes Moist Mucous Membranes, Yes Rhinorrhea, No Pharyngeal Erythema, No Pharyngeal Exudates, No Conjuctival Injection Neck: Yes Supple, No Adenopathy Lungs: Yes Good Air Exchange, No Wheezes, No Ronchi, No Stridor, No Cough, No Labored Respirations, No Retractions, No Use of Accessory Muscles, No Other Abnormal Lung Sounds Heart: Yes Regular, No Murmur Abdomen: Yes Normal Bowel Sounds, No Tenderness, No Peritoneal Signs Skin: No Rash, No Edema Neurologic: Alert and oriented, no deficits. Musculoskeletal: Unremarkable. ED Course Vital Signs 09/17/19 11:08 Temperature 98.5 F Pulse Rate 76 Respiratory 16 Rate Blood Pressure 142/87 O2 Sat by Pulse 96 Oximetry ED Medical Decision Making - Medical Decision Making acute bronchitis: abx indicated with tobacco use rx: doxycycline influenza rx: tamiflu Critical care attestation.: If time is entered above; I have spent that time in minutes in the direct care of this critically ill patient, excluding procedure time. ED Disposition Clinical Impression: Influenza, Acute bronchitis Disposition: DC-01 TO HOME OR SELFCARE Is pt being admited?: No Does the pt Need Aspirin: No Condition: Stable Instructions: Acute Bronchitis (ED), Influenza (ED) Prescriptions: Oseltamivir [Tamiflu] 75 mg PO BID 5 Days #10 cap DOXYCYCLINE Hyclate [Vibramycin CAP] 100 mg PO Q12HR 7 Days #14 capsule Referrals: [facility] [Outside] - 3-5 Days
== END 2019-09-17 11:54 | disposition home or self-care (01) ==
LOC: ED 10:54
DX: J20.9 Acute bronchitis, unspecified (principal); J11.1 Influenza due to unidentified influenza virus with other respiratory manifestations; M19.90 Unspecified osteoarthritis, unspecified site; F25.0 Schizoaffective disorder, bipolar type; Z98.890 Other specified postprocedural states; Z79.1 Long term (current) use of non-steroidal anti-inflammatories (NSAID); Z79.899 Other long term (current) drug therapy; Z88.0 Allergy status to penicillin
CPT/HCPCS: 99281

== ENCOUNTER 2019-09-17 23:49 | Emergency (ER) | payer MEDICARE ==
[2019-09-18 00:56] LABS: Basophils # (Auto) 0.1 K/mm3 (0.0-0.1); Basophils % (Auto) 0.9 % (0.0-1.8); Eosinophils # (Auto) 0.2 K/mm3 (0.0-0.4); Eosinophils % (Auto) 3.2 % (0.0-4.3); Hematocrit 43.9 % (35.5-45.6); Hemoglobin 15.1 gm/dl (11.8-15.2); Lymphocytes # (Auto) 1.3 K/mm3 (1.2-5.4); Lymphocytes % (Auto) 17.1 % (13.4-35.0); Mean Corpuscular HGB Conc 35 % (32-34); Mean Corpuscular Volume 93 fl (84-94); Monocytes # (Auto) 0.8 K/mm3 (0.0-0.8); Monocytes % (Auto) 10.8 % (0.0-7.3); Platelet Count 216 K/mm3 (140-440); Red Blood Count 4.71 M/mm3 (3.65-5.03); Red Cell Distribution Width 12.7 % (13.2-15.2)
[2019-09-18 01:15] LABS: BUN/Creatinine Ratio 13; Blood Urea Nitrogen 13 mg/dL (9-20); Calcium 8.9 mg/dL (8.4-10.2); Hemolysis Index 10
[2019-09-18 01:36] LABS: Bilirubin,Urine NEG (Negative); Blood,Urine SM (Negative); Color,Urine Yellow (Yellow); Mucus,Urine FEW /HPF; Protein,Urine <15 mg/dL mg/dL (Negative); WBC,Urine < 1.0 /HPF (0.0-6.0)
[2019-09-18 01:41] LABS: Amphetamine Screen,Urine PRESUMPTIVE NEGATIVE; Benzodiazepines Screen,Urine PRESUMPTIVE NEGATIVE; Cannabinoid Screen,Urine PRESUMPTIVE NEGATIVE; Cocaine Screen,Urine PRESUMPTIVE NEGATIVE; Methadone Screen,Urine PRESUMPTIVE NEGATIVE; Opiate Screen,Urine PRESUMPTIVE NEGATIVE
--- NOTE | 2019-09-18 10:03 | Emergency Department Report ---
ED Psych HPI - General Chief Complaint: Psych Stated Complaint: MH EVAL Time Seen by Provider: 09/18/19 09:58 Source: patient Mode of arrival: Ambulatory - History of Present Illness Initial Comments: Chief complaint: "I do not want to go home." HPI: Mr. Xiao is a 54-year-old male with history of bipolar disorder schizoaffective disorder who presents with acute depression. Since the of his stillborn son August 2018 he has not been coping well. With his multiple medical and mental health concerns, he moved closer to the hospital in order to have access to medical care. Recently treated for flu. He is taking Tamiflu. He is currently taking Cymbalta. He denies suicidal ideation with plan MD Complaint: feels depressed -: Gradual, week(s) (Several weeks) Associated Psychiatric Symptoms: depression History of same: Yes Quality: constant Improves With: none Worsens With: none Context: significant life stressor - Related Data Previous Rx's Medication Instructions Recorded Last Taken Type Cyclobenzaprine [Flexeril 10 MG 10 mg PO BID PRN #20 tablet 06/13/18 Unknown Rx TAB] Butalb/Acetaminophen/Caffeine 1 cap PO Q8HR PRN #12 cap 06/12/19 Unknown Rx [Fioricet 50-300-40 mg CAP] Ibuprofen [Motrin 800 MG tab] 800 mg PO Q8HR PRN #14 tablet 07/21/19 Unknown Rx Sennosides [Senna] 17.2 mg PO BID #30 capsule 07/21/19 Unknown Rx oxyCODONE /ACETAMINOPHEN [Percocet 1 tab PO Q6H PRN #10 tablet 07/21/19 Unknown Rx 5/325 mg] DOXYCYCLINE Hyclate [Vibramycin 100 mg PO Q12HR 7 Days #14 capsule 09/17/19 Unknown Rx CAP] Oseltamivir [Tamiflu] 75 mg PO BID 5 Days #10 cap 09/17/19 Unknown Rx Allergies Allergy/AdvReac Type Severity Reaction Status Date / Time Penicillins Allergy Unknown Verified 06/12/19 12:51 ED Review of Systems ROS: Stated complaint: MH EVAL Other details as noted in HPI Comment: All other systems reviewed and negative Constitutional: malaise ENT: congestion Respiratory: cough Cardiovascular: denies: chest pain Gastrointestinal: denies: abdominal pain Psychiatric: anxiety, depression ED Past Medical Hx - Past Medical History Previous Medical History?: Yes Hx Hypertension: No Hx Heart Attack/AMI: No Hx Liver Disease: No Hx Renal Disease: No Hx Arthritis: Yes Hx Headaches / Migraines: Yes Hx Psychiatric Treatment: Yes (BIPOLAR,SCHIZO-EFFECTIVE DISORDER) Hx Asthma: No Additional medical history: "neuro stimulator in lower back" &* "stenosis in neck", umbilical hernia - Surgical History Past Surgical History?: Yes Additional Surgical History: 98"neck surgery" "wrist surgery". hernia sx - Social History Smoking Status: Unknown if ever smoked Substance Use Type: None - Medications Home Medications: Home Medications Medication Instructions Recorded Confirmed Last Taken Type Cyclobenzaprine [Flexeril 10 MG 10 mg PO BID PRN #20 tablet 06/13/18 07/20/19 Unknown Rx TAB] Butalb/Acetaminophen/Caffeine 1 cap PO Q8HR PRN #12 cap 06/12/19 07/20/19 Unknown Rx [Fioricet 50-300-40 mg CAP] Ibuprofen [Motrin 800 MG tab] 800 mg PO Q8HR PRN #14 tablet 07/21/19 Unknown Rx Sennosides [Senna] 17.2 mg PO BID #30 capsule 07/21/19 Unknown Rx oxyCODONE /ACETAMINOPHEN [Percocet 1 tab PO Q6H PRN #10 tablet 07/21/19 Unknown Rx 5/325 mg] DOXYCYCLINE Hyclate [Vibramycin 100 mg PO Q12HR 7 Days #14 capsule 09/17/19 Unknown Rx CAP] Oseltamivir [Tamiflu] 75 mg PO BID 5 Days #10 cap 09/17/19 Unknown Rx ED Physical Exam - General Limitations: No Limitations General appearance: alert, in no apparent distress - Head Head exam: Present: atraumatic, normocephalic - Eye Eye exam: Present: normal appearance - ENT ENT exam: Present: mucous membranes moist - Neck Neck exam: Present: normal inspection, full ROM - Respiratory Respiratory exam: Present: normal lung sounds bilaterally. Absent: respiratory distress, wheezes, rales, rhonchi - Cardiovascular Cardiovascular Exam: Present: regular rate, normal rhythm, normal heart sounds. Absent: systolic murmur, diastolic murmur, rubs, gallop - GI/Abdominal GI/Abdominal exam: Present: soft, normal bowel sounds. Absent: distended, tenderness, guarding, rebound - Rectal Rectal exam: Present: deferred - Extremities Exam Extremities exam: Present: normal inspection - Neurological Exam Neurological exam: Present: alert, oriented X3 - Psychiatric Psychiatric exam: Present: normal affect, depressed - Skin Skin exam: Present: warm, dry, intact, normal color. Absent: rash ED Course Vital Signs 09/17/19 09/18/19 23:54 10:02 Temperature 99.0 F 98.3 F Pulse Rate 73 77 Respiratory 18 20 Rate Blood Pressure 138/96 Blood Pressure 135/85 [Right] O2 Sat by Pulse 97 97 Oximetry ED Medical Decision Making - Lab Data Result diagrams: 09/18/19 00:41 09/18/19 00:41 Laboratory Results - last 24 hr 09/18/19 09/18/19 09/18/19 00:41 00:41 00:41 WBC RBC Hgb Hct MCV MCH MCHC RDW Plt Count Lymph % (Auto) [place] % (Auto) Eos % (Auto) Baso % (Auto) Lymph # [place] # Eos # Baso # Seg Neutrophils % Seg Neutrophils # Sodium 140 Potassium 4.1 Chloride 101.4 Carbon Dioxide 26 Anion Gap 17 BUN 13 Creatinine 1.0 Estimated GFR > 60 BUN/Creatinine Ratio 13 Glucose 108 H Calcium 8.9 Urine Color Urine Turbidity Urine pH Ur Specific [place] Urine Protein Urine Glucose (UA) Urine Ketones Urine Blood Urine Nitrite Urine Bilirubin Urine Urobilinogen Ur Leukocyte Esterase Urine WBC (Auto) Urine RBC (Auto) Urine Mucus Salicylates < 0.3 L Urine Opiates Screen Urine Methadone Screen Acetaminophen < 5.0 L Ur Barbiturates Screen Ur Phencyclidine Scrn Ur Amphetamines Screen U Benzodiazepines Scrn Urine Cocaine Screen U Marijuana (THC) Screen Drugs of Abuse Note Plasma/Serum Alcohol 09/18/19 09/18/19 09/18/19 00:41 00:41 01:14 WBC 7.4 RBC 4.71 Hgb 15.1 Hct 43.9 MCV 93 MCH 32 MCHC 35 H RDW 12.7 L Plt Count 216 Lymph % (Auto) 17.1 [place] % (Auto) 10.8 H Eos % (Auto) 3.2 Baso % (Auto) 0.9 Lymph # 1.3 [place] # 0.8 Eos # 0.2 Baso # 0.1 Seg Neutrophils % 68.0 Seg Neutrophils # 5.1 Sodium Potassium Chloride Carbon Dioxide Anion Gap BUN Creatinine Estimated GFR BUN/Creatinine Ratio Glucose Calcium Urine Color Yellow Urine Turbidity Clear Urine pH 6.0 Ur Specific [place] 1.018 Urine Protein <15 mg/dl Urine Glucose (UA) Neg Urine Ketones Neg Urine Blood Sm Urine Nitrite Neg Urine Bilirubin Neg Urine Urobilinogen 2.0 Ur Leukocyte Esterase Neg Urine WBC (Auto) < 1.0 Urine RBC (Auto) 8.0 Urine Mucus Few Salicylates Urine Opiates Screen Urine Methadone Screen Acetaminophen Ur Barbiturates Screen Ur Phencyclidine Scrn Ur Amphetamines Screen U Benzodiazepines Scrn Urine Cocaine Screen U Marijuana (THC) Screen Drugs of Abuse Note Plasma/Serum Alcohol < 0.01 09/18/19 01:14 WBC RBC Hgb Hct MCV MCH MCHC RDW Plt Count Lymph % (Auto) [place] % (Auto) Eos % (Auto) Baso % (Auto) Lymph # [place] # Eos # Baso # Seg Neutrophils % Seg Neutrophils # Sodium Potassium Chloride Carbon Dioxide Anion Gap BUN Creatinine Estimated GFR BUN/Creatinine Ratio Glucose Calcium Urine Color Urine Turbidity Urine pH Ur Specific [place] Urine Protein Urine Glucose (UA) Urine Ketones Urine Blood Urine Nitrite Urine Bilirubin Urine Urobilinogen Ur Leukocyte Esterase Urine WBC (Auto) Urine RBC (Auto) Urine Mucus Salicylates Urine Opiates Screen Presumptive negative Urine Methadone Screen Presumptive negative Acetaminophen Ur Barbiturates Screen Presumptive negative Ur Phencyclidine Scrn Presumptive negative Ur Amphetamines Screen Presumptive negative U Benzodiazepines Scrn Presumptive negative Urine Cocaine Screen Presumptive negative U Marijuana (THC) Screen Presumptive negative Drugs of Abuse Note Disclamer Plasma/Serum Alcohol - Medical Decision Making Mr. Xiao is a 54-year-old male who presents with acute depression history of schizoaffective disorder bipolar type. He is medically clear for psychiatric care. I have reviewed the lab studies obtained. Mr. Xiao has been accepted to our geriatric psych unit floor voluntary admission. He is discharged from the emergency department. He will be transported directly to our psychiatric unit. Critical care attestation.: If time is entered above; I have spent that time in minutes in the direct care of this critically ill patient, excluding procedure time. ED Disposition Clinical Impression: Acute depression Disposition: DC/TX-65 PSY HOSP/PSY UNIT Is pt being admited?: No Does the pt Need Aspirin: No Condition: Stable Referrals: PRIMARY CARE, [Primary Care Provider] - 3-5 Days
[2019-09-18 14:10] VITALS: BP 120/64
== END 2019-09-18 15:15 ==
LOC: ED 23:49
DX: F32.9 Major depressive disorder, single episode, unspecified (principal); M19.90 Unspecified osteoarthritis, unspecified site; Z79.1 Long term (current) use of non-steroidal anti-inflammatories (NSAID); Z79.899 Other long term (current) drug therapy; Z88.0 Allergy status to penicillin
CPT/HCPCS: 36415; 80048; 80307; 80320; 81001; 85025; G0480

== ENCOUNTER 2019-09-25 21:44 | Emergency (ER) | payer MEDICARE ==
[2019-09-25] MEDS ORDERED: METOCLOPRAMIDE 10 MG/2 ML INJ IV STA (23:50)
[2019-09-25] MEDS ORDERED: ONDANSETRON 4 MG/2 ML INJ IV STA (23:50)
[2019-09-25] MEDS ORDERED: KETOROLAC 30 MG/1 ML INJ IV STA (23:50)
[2019-09-25] MEDS ORDERED: SODIUM CHLORIDE 0.9% 1000 ML 1,000 ML IV ONE (23:50)
[2019-09-25] MEDS ORDERED: diphenhydrAMINE 50 MG/ML VIAL IV STA (23:50)
--- NOTE | 2019-09-26 01:02 | Emergency Department Report ---
ED Headache HPI - General Chief Complaint: Headache Stated Complaint: MIGRAINE Time Seen by Provider: 09/25/19 23:38 - History of Present Illness Allergies/Adverse Reactions: Allergies Penicillins Allergy (Verified 06/12/19 12:51) Unknown Home Medications: Ambulatory Orders Cyclobenzaprine [Flexeril 10 MG TAB] 10 mg PO BID PRN #20 tablet 06/13/18 Butalb/Acetaminophen/Caffeine [Fioricet 50-300-40 mg CAP] 1 cap PO Q8HR PRN #12 cap 06/12/19 Ibuprofen [Motrin 800 MG tab] 800 mg PO Q8HR PRN #14 tablet 07/21/19 Sennosides [Senna] 17.2 mg PO BID #30 capsule 07/21/19 oxyCODONE /ACETAMINOPHEN [Percocet 5/325 mg] 1 tab PO Q6H PRN #10 tablet 07/21/19 DOXYCYCLINE Hyclate [Vibramycin CAP] 100 mg PO Q12HR 7 Days #14 capsule 09/17/19 Oseltamivir [Tamiflu] 75 mg PO BID 5 Days #4 cap 09/20/19 Sertraline [Zoloft] 50 mg PO QDAY #30 tablet 09/20/19 busPIRone [Buspar] 7.5 mg PO BID #60 tablet 09/20/19 traZODone [Desyrel] 50 mg PO QHS #30 tablet 09/20/19 Butalb/Acetaminophen/Caffeine [Fioricet 50-300-40 mg CAP] 1 cap PO Q6HR PRN #20 cap 09/26/19 ED Review of Systems ROS: Stated complaint: MIGRAINE Other details as noted in HPI Comment: All other systems reviewed and negative ED Past Medical Hx - Past Medical History Previous Medical History?: Yes Hx Hypertension: No Hx Heart Attack/AMI: No Hx Liver Disease: No Hx Renal Disease: No Hx Arthritis: Yes Hx Headaches / Migraines: Yes Hx Psychiatric Treatment: Yes (BIPOLAR,SCHIZO-EFFECTIVE DISORDER) Hx Asthma: No Additional medical history: "neuro stimulator in lower back" &* "stenosis in neck", umbilical hernia - Surgical History Past Surgical History?: Yes Additional Surgical History: 98"neck surgery" "wrist surgery". hernia sx - Social History Smoking Status: Current Every Day Smoker Substance Use Type: None - Medications Home Medications: Home Medications Medication Instructions Recorded Confirmed Last Taken Type Cyclobenzaprine [Flexeril 10 MG 10 mg PO BID PRN #20 tablet 06/13/18 09/19/19 08/12/19 10:00 Rx TAB] Butalb/Acetaminophen/Caffeine 1 cap PO Q8HR PRN #12 cap 06/12/19 09/19/19 08/12/19 10:00 Rx [Fioricet 50-300-40 mg CAP] 50 mg Ibuprofen [Motrin 800 MG tab] 800 mg PO Q8HR PRN #14 tablet 07/21/19 09/19/19 09/18/19 Rx Sennosides [Senna] 17.2 mg PO BID #30 capsule 07/21/19 09/19/19 08/12/19 10:00 Rx 17.2mg oxyCODONE /ACETAMINOPHEN [Percocet 1 tab PO Q6H PRN #10 tablet 07/21/19 09/19/19 08/12/18 10:00 Rx 5/325 mg] DOXYCYCLINE Hyclate [Vibramycin 100 mg PO Q12HR 7 Days #14 capsule 09/17/19 09/19/19 09/18/19 Rx CAP] Oseltamivir [Tamiflu] 75 mg PO BID 5 Days #4 cap 09/20/19 Unknown Rx Sertraline [Zoloft] 50 mg PO QDAY #30 tablet 09/20/19 Unknown Rx busPIRone [Buspar] 7.5 mg PO BID #60 tablet 09/20/19 Unknown Rx traZODone [Desyrel] 50 mg PO QHS #30 tablet 09/20/19 Unknown Rx Butalb/Acetaminophen/Caffeine 1 cap PO Q6HR PRN #20 cap 09/26/19 Unknown Rx [Fioricet 50-300-40 mg CAP] ED Physical Exam - General Limitations: No Limitations General appearance: alert, in no apparent distress - Head Head exam: Present: atraumatic, normocephalic, normal inspection - Eye Eye exam: Present: normal appearance, PERRL, EOMI, periorbital tenderness. Absent: conjunctival injection, nystagmus, periorbital swelling Pupils: Present: normal accommodation - ENT ENT exam: Present: normal exam, normal orophraynx, mucous membranes moist - Neck Neck exam: Present: normal inspection, full ROM - Respiratory Respiratory exam: Present: normal lung sounds bilaterally. Absent: respiratory distress, wheezes, rales - Cardiovascular Cardiovascular Exam: Present: regular rate, normal rhythm. Absent: systolic murmur, diastolic murmur, rubs, gallop - GI/Abdominal GI/Abdominal exam: Present: soft, normal bowel sounds. Absent: distended, tenderness, guarding, hyperactive bowel sounds, hypoactive bowel sounds, organomegaly - Rectal Rectal exam: Present: deferred - Extremities Exam Extremities exam: Present: normal inspection - Back Exam Back exam: Present: normal inspection - Neurological Exam Neurological exam: Present: alert, oriented X3 - Psychiatric Psychiatric exam: Present: normal affect, normal mood - Skin Skin exam: Present: warm, dry, intact, normal color. Absent: rash ED Course Vital Signs 09/25/19 09/25/19 21:48 22:25 Temperature 98.2 F 98.2 F Pulse Rate 80 80 Respiratory 18 18 Rate Blood Pressure 139/91 139/91 O2 Sat by Pulse 97 97 Oximetry ED Medical Decision Making - Medical Decision Making This patient presents with a headache most consistent with migraine. Differential diagnosis includes migraine versus tension type headache. No headache red flags. Neurologic exam without evidence of meningismus, focal neurologic findings.Based on the patient's history and physical there is very low clinical suspicion for significant intracranial pathology. The headache was NOT sudden onset, NOT maximal at onset, there are NO neurologic findings, the pa tient does NOT have a fever, the patient does NOT have any jaw claudication, the patient does NOT endorse a clotting disorder, patient DENIES any trauma or eye pain and the headache is NOT associated with dizziness or ataxia. Presentation not consistent with acute intracranial bleed to include SAH (lack of risk factors, headache history). Presentation not consistent with acute [employer] SEAT C[employer]ER infection to include meningitis or brain abscess, Temporal arteritis unlikely, as is acute angle closure glaucoma given history and physical findings. Presentation not consistent with other acute, emergent causes of headache at this time. Plan to treat symptomatically with pain medication. No indication for imaging/LP at this time. Plan: pain medication, CT brain deferred, serial reassessment Critical care attestation.: If time is entered above; I have spent that time in minutes in the direct care of this critically ill patient, excluding procedure time. ED Disposition Clinical Impression: Cephalgia Disposition: DC-01 TO HOME OR SELFCARE Is pt being admited?: No Does the pt Need Aspirin: No Condition: Stable Instructions: Acute Headache (ED), Migraine Headache (ED) Prescriptions: Butalb/Acetaminophen/Caffeine [Fioricet 50-300-40 mg CAP] 1 cap PO Q6HR PRN #20 cap PRN Reason: Headache Referrals: [facility] [Provider Group] - 3-5 Days
[2019-09-26 01:47] VITALS: BP 128/78
== END 2019-09-26 01:47 | disposition home or self-care (01) ==
LOC: ED 21:44
DX: G43.909 Migraine, unspecified, not intractable, without status migrainosus (principal); M19.90 Unspecified osteoarthritis, unspecified site; F17.200 Nicotine dependence, unspecified, uncomplicated; Z98.890 Other specified postprocedural states; Z79.1 Long term (current) use of non-steroidal anti-inflammatories (NSAID); Z79.899 Other long term (current) drug therapy; Z88.0 Allergy status to penicillin
CPT/HCPCS: 96374; 96375; 99283; J1200; J1885; J2405; J2765; J7030

== ENCOUNTER 2019-10-23 08:11 | Emergency (ER) | payer MEDICARE ==
[2019-10-23] MEDS ORDERED: dexAMETHasone 20 MG/5 ML VIAL IM ONE (09:24)
--- NOTE | 2019-10-23 09:51 | Emergency Department Report ---
ED General Adult HPI - General Chief complaint: Pain General Stated complaint: BACK/RT KNEE PAIN Time Seen by Provider: 10/23/19 09:23 Source: patient Mode of arrival: Ambulatory Limitations: No Limitations - History of Present Illness Initial comments: 54-year-old male complaining of back pain. Patient has a history of chronic back pain he states he has a neurotranstimulator in his back but it is not working correctly at this time. States that he is homeless and sleeping on a metal bench and this has aggravated his back. He has no complaint of bowel or bladder incontinence he denies any recent falls or injuries. -: Gradual Consistency: constant Improves with: none Associated Symptoms: denies other symptoms. denies: chest pain, loss of appetite, nausea/vomiting Treatments Prior to Arrival: none - Related Data Previous Rx's Medication Instructions Recorded Last Taken Type Butalb/Acetaminophen/Caffeine 1 cap PO Q8HR PRN #12 cap 06/12/19 08/12/19 10:00 Rx [Fioricet 50-300-40 mg CAP] 50 mg Ibuprofen [Motrin 800 MG tab] 800 mg PO Q8HR PRN #14 tablet 07/21/19 09/18/19 Rx Sennosides [Senna] 17.2 mg PO BID #30 capsule 07/21/19 08/12/19 10:00 Rx 17.2mg oxyCODONE /ACETAMINOPHEN [Percocet 1 tab PO Q6H PRN #10 tablet 07/21/19 08/12/18 10:00 Rx 5/325 mg] DOXYCYCLINE Hyclate [Vibramycin 100 mg PO Q12HR 7 Days #14 capsule 09/17/19 09/18/19 Rx CAP] Oseltamivir [Tamiflu] 75 mg PO BID 5 Days #4 cap 09/20/19 Unknown Rx Sertraline [Zoloft] 50 mg PO QDAY #30 tablet 09/20/19 Unknown Rx busPIRone [Buspar] 7.5 mg PO BID #60 tablet 09/20/19 Unknown Rx traZODone [Desyrel] 50 mg PO QHS #30 tablet 09/20/19 Unknown Rx Butalb/Acetaminophen/Caffeine 1 cap PO Q6HR PRN #20 cap 09/26/19 Unknown Rx [Fioricet 50-300-40 mg CAP] Cyclobenzaprine [Flexeril 10 MG 10 mg PO BID PRN #20 tablet 10/23/19 Unknown Rx TAB] Ibuprofen [Motrin] 800 mg PO Q8HR PRN #21 tablet 10/23/19 Unknown Rx Allergies Allergy/AdvReac Type Severity Reaction Status Date / Time Penicillins Allergy Unknown Verified 06/12/19 12:51 ED Review of Systems ROS: Stated complaint: BACK/RT KNEE PAIN Other details as noted in HPI Comment: All other systems reviewed and negative Constitutional: no symptoms reported Eyes: denies: eye pain ENT: denies: ear pain, throat pain Cardiovascular: denies: chest pain, palpitations Gastrointestinal: denies: abdominal pain Musculoskeletal: back pain. denies: joint swelling ED Past Medical Hx - Past Medical History Previous Medical History?: Yes Hx Hypertension: No Hx Heart Attack/AMI: No Hx Congestive Heart Failure: No Hx Diabetes: No Hx Liver Disease: No Hx Renal Disease: No Hx Arthritis: Yes Hx Headaches / Migraines: Yes Hx Seizures: No Hx Psychiatric Treatment: Yes (BIPOLAR,SCHIZO-EFFECTIVE DISORDER) Hx Asthma: No Hx COPD: No Hx Dementia: No Additional medical history: "neuro stimulator in lower back" &* "stenosis in neck", umbilical hernia - Surgical History Past Surgical History?: Yes Hx Cholecystectomy: No Hx Appendectomy: No Additional Surgical History: 98"neck surgery" "wrist surgery". hernia sx - Social History Smoking Status: Never Smoker Substance Use Type: None - Medications Home Medications: Home Medications Medication Instructions Recorded Confirmed Last Taken Type Butalb/Acetaminophen/Caffeine 1 cap PO Q8HR PRN #12 cap 06/12/19 09/19/19 08/12/19 10:00 Rx [Fioricet 50-300-40 mg CAP] 50 mg Ibuprofen [Motrin 800 MG tab] 800 mg PO Q8HR PRN #14 tablet 07/21/19 09/19/19 09/18/19 Rx Sennosides [Senna] 17.2 mg PO BID #30 capsule 07/21/19 09/19/19 08/12/19 10:00 Rx 17.2mg oxyCODONE /ACETAMINOPHEN [Percocet 1 tab PO Q6H PRN #10 tablet 07/21/19 09/19/19 08/12/18 10:00 Rx 5/325 mg] DOXYCYCLINE Hyclate [Vibramycin 100 mg PO Q12HR 7 Days #14 capsule 09/17/19 09/19/19 09/18/19 Rx CAP] Oseltamivir [Tamiflu] 75 mg PO BID 5 Days #4 cap 09/20/19 Unknown Rx Sertraline [Zoloft] 50 mg PO QDAY #30 tablet 09/20/19 Unknown Rx busPIRone [Buspar] 7.5 mg PO BID #60 tablet 09/20/19 Unknown Rx traZODone [Desyrel] 50 mg PO QHS #30 tablet 09/20/19 Unknown Rx Butalb/Acetaminophen/Caffeine 1 cap PO Q6HR PRN #20 cap 09/26/19 Unknown Rx [Fioricet 50-300-40 mg CAP] Cyclobenzaprine [Flexeril 10 MG 10 mg PO BID PRN #20 tablet 10/23/19 Unknown Rx TAB] Ibuprofen [Motrin] 800 mg PO Q8HR PRN #21 tablet 10/23/19 Unknown Rx ED Physical Exam - General Limitations: No Limitations General appearance: alert, in no apparent distress - Head Head exam: Present: atraumatic - Eye Eye exam: Present: normal appearance - ENT ENT exam: Present: normal exam - Neck Neck exam: Present: normal inspection - Respiratory Respiratory exam: Present: normal lung sounds bilaterally - Cardiovascular Cardiovascular Exam: Present: regular rate, normal heart sounds - GI/Abdominal GI/Abdominal exam: Present: soft - Rectal Rectal exam: Present: deferred - Extremities Exam Extremities exam: Present: normal inspection - Back Exam Back exam: Present: normal inspection, paraspinal tenderness - Neurological Exam Neurological exam: Present: alert, oriented X3 - Psychiatric Psychiatric exam: Present: normal affect - Skin Skin exam: Present: warm, dry, intact ED Course Vital Signs 10/23/19 08:32 Temperature 98.3 F Pulse Rate 72 Respiratory 20 Rate Blood Pressure 134/77 O2 Sat by Pulse 97 Oximetry ED Medical Decision Making - Medical Decision Making 54-year-old male with chronic back pain requesting a steroid shot to relieve his pain. He denies any recent falls or injuries. He is continent of his bowel and bladder no difficulty urinating. Patient seeking pain management. Discussed with patient the need to follow up with primary care octor for further treatment and evaluation Critical Care Time: No Critical care attestation.: If time is entered above; I have spent that time in minutes in the direct care of this critically ill patient, excluding procedure time. ED Disposition Clinical Impression: Chronic back pain Qualifiers: Back pain location: low back pain Back pain laterality: unspecified Sciatica presence: unspecified whether sciatica present Qualified Code(s): M54.5 - Low back pain; G89.29 - Other chronic pain Disposition: TO HOME OR SELFCARE Is pt being admited?: No Does the pt Need Aspirin: No Condition: Stable Instructions: Chronic Back Pain (ED) Additional Instructions: Take all medications as prescribed follow-up with your doctor for further evaluation and treatment Prescriptions: Cyclobenzaprine [Flexeril 10 MG TAB] 10 mg PO BID PRN #20 tablet PRN Reason: Muscle Spasm Ibuprofen [Motrin] 800 mg PO Q8HR PRN #21 tablet PRN Reason: pain Referrals: PRIMARY CAREMD [Primary Care Provider] - 3-5 Days BRUCE CASTRO MD [Staff Physician] - 3-5 Days Time of Disposition: 09:58
[2019-10-23 10:02] VITALS: BP 131/72
== END 2019-10-23 10:01 | disposition home or self-care (01) ==
LOC: ED 08:11
DX: M54.9 Dorsalgia, unspecified (principal); G89.29 Other chronic pain; Z79.899 Other long term (current) drug therapy; G43.909 Migraine, unspecified, not intractable, without status migrainosus; F25.0 Schizoaffective disorder, bipolar type; Z88.0 Allergy status to penicillin
CPT/HCPCS: 96372; 99282; J1100; 90471

== ENCOUNTER 2020-10-24 20:11 | Emergency (ER) | payer MEDICARE ==
[2020-10-24 21:01] VITALS: BP 159/108
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
[2020-10-24] MEDS ORDERED: HYDROcodone/ACETAMINOPHEN 5-325 MG TAB PO STA (22:13)
== END 2020-10-25 01:05 | disposition home or self-care (01) ==
LOC: ED 20:11
DX: M23.92 Unspecified internal derangement of left knee (principal); M19.90 Unspecified osteoarthritis, unspecified site; G43.909 Migraine, unspecified, not intractable, without status migrainosus; F31.9 Bipolar disorder, unspecified; F17.200 Nicotine dependence, unspecified, uncomplicated; Z79.899 Other long term (current) drug therapy; Z88.0 Allergy status to penicillin
CPT/HCPCS: 99283

== ENCOUNTER 2021-03-14 19:55 | Emergency (ER) | payer MEDICARE ==
[2021-03-14 21:35] VITALS: BP 154/102
--- NOTE | 2021-03-14 23:49 | Emergency Department Report ---
ED General Adult HPI - General Chief complaint: Headache Stated complaint: headache Time Seen by Provider: 03/14/21 23:39 Source: patient Mode of arrival: Ambulatory Limitations: No Limitations - History of Present Illness Initial comments: 56-year-old male patient with history of recurrent migraines presents to the emergency department with headache starting last week. Patient states his current headache is consistent with prior migraines. No preceding fall, trauma, or injury. Headache is diffuse, worse with bright lights and loud noises. Patient states he typically takes Fioricet for his migraines. This medication has been very effective in controlling his pain. His primary care provider usually prescribes this medication for him. However, his primary care provider is currently out of the office due to the COVID-19 pandemic. Denies neck pain, seizure, syncope, rash, fever, numbness, weakness, paresthesias, nausea, vomiting. Denies all other complaints at this time. - Related Data Previous Rx's Medication Instructions Recorded Last Taken Type Butalb/Acetaminophen/Caffeine 1 cap PO Q8HR PRN #12 cap 06/12/19 08/12/19 10:00 Rx [Fioricet 50-300-40 mg CAP] 50 mg Ibuprofen [Motrin 800 MG tab] 800 mg PO Q8HR PRN #14 tablet 07/21/19 09/18/19 Rx Sennosides [Senna] 17.2 mg PO BID #30 capsule 07/21/19 08/12/19 10:00 Rx 17.2mg oxyCODONE /ACETAMINOPHEN [Percocet 1 tab PO Q6H PRN #10 tablet 07/21/19 08/12/18 10:00 Rx 5/325 mg] DOXYCYCLINE Hyclate [Vibramycin 100 mg PO Q12HR 7 Days #14 capsule 09/17/19 09/18/19 Rx CAP] Oseltamivir [Tamiflu] 75 mg PO BID 5 Days #4 cap 09/20/19 Unknown Rx Sertraline [Zoloft] 50 mg PO QDAY #30 tablet 09/20/19 Unknown Rx busPIRone [Buspar] 7.5 mg PO BID #60 tablet 09/20/19 Unknown Rx traZODone [Desyrel] 50 mg PO QHS #30 tablet 09/20/19 Unknown Rx Butalb/Acetaminophen/Caffeine 1 cap PO Q6HR PRN #20 cap 09/26/19 Unknown Rx [Fioricet 50-300-40 mg CAP] Cyclobenzaprine [Flexeril 10 MG 10 mg PO BID PRN #20 tablet 10/23/19 Unknown Rx TAB] Ibuprofen [Motrin] 800 mg PO Q8HR PRN #21 tablet 10/23/19 Unknown Rx Meloxicam, Submicronized 10 mg PO DAILY #10 capsule 10/25/20 Unknown Rx [Meloxicam] Butalb/Acetamin/Caff 50-325-40 1 each PO TID PRN #15 tablet 03/14/21 Unknown Rx [Fioricet 50-325-40] Allergies Allergy/AdvReac Type Severity Reaction Status Date / Time Penicillins Allergy Unknown Verified 06/12/19 12:51 ED Review of Systems ROS: Stated complaint: SEVERE HEADACHE Other details as noted in HPI Other: GENERAL: Negative for fever, chills, weight change, anorexia, fatigue. ENT: Negative for ear pain, difficulty hearing, sore throat, nasal congestion, epistaxis. CARDIOVASCULAR: Negative for chest pain, palpitations, lower extremity swelling. PULMONARY: Negative for cough, dyspnea, wheezing, orthopnea, cyanosis. GASTROINTESTINAL: Negative for abdominal pain, nausea, vomiting, diarrhea, constipation. MUSCULOSKELETAL: Negative for joint pain, joint swelling, myalgias, back pain, neck pain. NEUROLOGICAL: Positive for headache. INTEGUMENTARY: Negative for erythema, rash, diaphoresis, laceration, ecchymosis. HEMATOLOGICAL: Negative for hemoptysis, hematemesis, hematochezia, hematuria. PSYCHIATRIC: Negative for hallucinations, suicidal ideation, homicidal ideation, anxiety, depression. ED Past Medical Hx - Past Medical History Previous Medical History?: Yes Hx Hypertension: No Hx Heart Attack/AMI: No Hx Congestive Heart Failure: No Hx Diabetes: No Hx Liver Disease: No Hx Renal Disease: No Hx Arthritis: Yes Hx Headaches / Migraines: Yes Hx Seizures: No Hx Psychiatric Treatment: Yes (BIPOLAR,SCHIZO-EFFECTIVE DISORDER) Hx Asthma: No Hx COPD: No Hx Dementia: No Additional medical history: "neuro stimulator in lower back" &* "stenosis in neck", umbilical hernia - Surgical History Past Surgical History?: Yes Hx Cholecystectomy: No Hx Appendectomy: No Additional Surgical History: 98"neck surgery" "wrist surgery". hernia sx - Social History Smoking Status: Current Every Day Smoker - Medications Home Medications: Home Medications Medication Instructions Recorded Confirmed Last Taken Type Butalb/Acetaminophen/Caffeine 1 cap PO Q8HR PRN #12 cap 06/12/19 09/19/19 08/12/19 10:00 Rx [Fioricet 50-300-40 mg CAP] 50 mg Ibuprofen [Motrin 800 MG tab] 800 mg PO Q8HR PRN #14 tablet 07/21/19 09/19/19 09/18/19 Rx Sennosides [Senna] 17.2 mg PO BID #30 capsule 07/21/19 09/19/19 08/12/19 10:00 Rx 17.2mg oxyCODONE /ACETAMINOPHEN [Percocet 1 tab PO Q6H PRN #10 tablet 07/21/19 09/19/19 08/12/18 10:00 Rx 5/325 mg] DOXYCYCLINE Hyclate [Vibramycin 100 mg PO Q12HR 7 Days #14 capsule 09/17/19 09/19/19 09/18/19 Rx CAP] Oseltamivir [Tamiflu] 75 mg PO BID 5 Days #4 cap 09/20/19 Unknown Rx Sertraline [Zoloft] 50 mg PO QDAY #30 tablet 09/20/19 Unknown Rx busPIRone [Buspar] 7.5 mg PO BID #60 tablet 09/20/19 Unknown Rx traZODone [Desyrel] 50 mg PO QHS #30 tablet 09/20/19 Unknown Rx Butalb/Acetaminophen/Caffeine 1 cap PO Q6HR PRN #20 cap 09/26/19 Unknown Rx [Fioricet 50-300-40 mg CAP] Cyclobenzaprine [Flexeril 10 MG 10 mg PO BID PRN #20 tablet 10/23/19 Unknown Rx TAB] Ibuprofen [Motrin] 800 mg PO Q8HR PRN #21 tablet 10/23/19 Unknown Rx Meloxicam, Submicronized 10 mg PO DAILY #10 capsule 10/25/20 Unknown Rx [Meloxicam] Butalb/Acetamin/Caff 50-325-40 1 each PO TID PRN #15 tablet 03/14/21 Unknown Rx [Fioricet 50-325-40] ED Physical Exam - General Limitations: No Limitations - Other Other exam information: General: Awake and alert. No acute distress. Head: Atraumatic, normocephalic. Eyes: EOMI. Pupils are equal and round, reactive to light, no nystagmus. Normal sclera and conjunctiva. ENT: Oral mucosa is moist. Normal pharyngeal exam. Neck: Supple. No lymphadenopathy. Pulmonary: No respiratory distress. Clear to auscultation bilaterally. Cardiac: Regular rate and rhythm. Pulses are palpable and equal bilaterally. No lower extremity cyanosis or edema. Skin: Warm and dry. No rashes. Abdomen: Soft, non-tender, non-protuberant. No guarding, rigidity, or rebound. Bowel sounds are normal. No organomegaly or masses noted. Back: Normal alignment. No CVA tenderness. Extremities: Symmetrical. Full range of motion intact. Neurological: Alert and oriented, appropriately interactive, no focal deficits. Strength and sensation intact throughout. Cranial nerves II through XII grossly intact. Ambulatory without assistance. Psych: Cooperative. Appropriate mood and affect. Speech is evenly metered. Thoughts are logically construed. ED Course Vital Signs 03/14/21 21:33 Temperature 98.2 F Pulse Rate 78 Respiratory 18 Rate Blood Pressure 154/102 O2 Sat by Pulse 97 Oximetry ED Medical Decision Making - Medical Decision Making Differential diagnosis including but not limited to: tension headache, migraine headache, cluster headache, temporal arteritis, meningitis, subarachnoid hemorrhage Patient w/ hx of migraines presents to ED requesting Fioricet refill in the setting of non-traumatic headache x1 week, consistent with prior migraines. The patient appears comfortable and is ambulatory without assistance. The patient is alert, talkative, interactive and in no distress. The patient is neurovascularly intact. History, exam, diagnostic testing, and current condition do not suggest worrisome pathology to warrant further testing, emergent intervention, admission, or specialist evaluation at this point. Additional testing such as CT imaging or lumbar puncture is not indicated at this time, but should be considered if symptoms worsen or recur. Discussed findings, presumptive diagnosis, need for follow-up and specific signs/symptoms that should prompt immediate return to the emergency department. Instructions were explained in detail to the patient in addition to giving written discharge information. Patient expressed understanding and was given the opportunity to ask questions, all of which were satisfactorily answered prior to discharge home. [place] controlled substance database reviewed prior to discharge. Last Fioricet prescription was a 10-day supply written over 1 month ago. Prior Fioricet prescriptions prescribed by family medicine physician. Patient has not been prescribed controlled substances from an emergency department in [place] in the last 12 months. Critical care attestation.: If time is entered above; I have spent that time in minutes in the direct care of this critically ill patient, excluding procedure time. ED Disposition Clinical Impression: History of migraine Disposition: HOME / SELF CARE / HOMELESS Is pt being admited?: No Does the pt Need Aspirin: No Condition: Stable Instructions: Recurrent Migraine Headache, [id number] Additional Instructions: Take Fioricet as previously directed. Rest. Drink plenty of fluids. Avoid bright lights and loud noises, which may worsen your headache. Follow-up with your primary care provider this week. Call tomorrow to schedule an appointment. Return to the emergency department immediately for new or worsening symptoms. Prescriptions: Butalb/Acetamin/Caff 50-325-40 [Fioricet 50-325-40] 1 each PO TID PRN #15 tablet PRN Reason: Headache Referrals: KAMERON SCOTT MD [Staff Physician] - 3-5 Days Time of Disposition: 23:50
== END 2021-03-15 01:43 | disposition home or self-care (01) ==
LOC: ED 19:55
DX: G43.909 Migraine, unspecified, not intractable, without status migrainosus (principal); M19.90 Unspecified osteoarthritis, unspecified site; F31.9 Bipolar disorder, unspecified; F25.0 Schizoaffective disorder, bipolar type; K42.9 Umbilical hernia without obstruction or gangrene; F17.200 Nicotine dependence, unspecified, uncomplicated; Z98.890 Other specified postprocedural states; Z88.0 Allergy status to penicillin
CPT/HCPCS: 99281